=== PATIENT | male | born 1955 | race Caucasian/White ===

== ENCOUNTER 2021-10-30 01:07 | Day surgery (SDC) | payer MEDICARE, SELFPAY ==
[2021-10-18 13:23] VITALS: BMI 33.5
--- NOTE | 2021-10-30 06:59 | PM.HPGS ---
History of Present Illness History of Present Illness Consent: Risks, benefits, and alternatives have been discussed and questions answered. Patient agrees to proceed with procedure. Chief complaint: hx of colon polyps Narrative: Damien Marshall is a 66 year old male Here for colon cancer screening. He had a polyp removed a little over 3 years ago. There is a strong family history of colon cancer Review of Systems Review of Systems: All systems reviewed & are unremarkable except as noted in HPI and below PMFSH Past Medical History Medical History Diabetes type 2, controlled Hyperlipidemia Hypertension Social History Social History Smoking status: Never smoker Alcohol intake: never Substance use: never Substance use type: does not use Living arrangements: with family Spiritual care concerns: No Meds Home Medications and Allergies Home Medications Medication Instructions Recorded Confirmed Type carbidopa-levodopa 1 tablet PO TID 10/18/21 10/18/21 History glimepiride 2 mg PO BID 10/18/21 10/18/21 History hydrochlorothiazide 12.5 mg PO DAILY 10/18/21 10/18/21 History lisinopril 20 mg PO DAILY 10/18/21 10/18/21 History metformin 1,000 mg PO BID 10/18/21 10/18/21 History pravastatin 40 mg PO DAILY 10/18/21 10/18/21 History Allergies Allergy/AdvReac Type Severity Reaction Status Date / Time No Known Allergies Allergy Verified 10/30/21 09:31 Exam Resp: Auscultation: clear to auscultation bilaterally Cardio: Rate: regular rate Rhythm: regular rhythm GI: GI Palp: Yes Soft to palpation and No Tenderness to palpation present (GI) Assessment and Plan Assessment and plan (1) Colon cancer screening: Code(s): Z12.11 - Encounter for screening for malignant neoplasm of colon Status: Acute Assessment and Plan: Colonoscopy with possible biopsy or polypectomy or cautery or injection of substances.
--- NOTE | 2021-10-30 07:03 | P.PNAN_ITS ---
Anes - Initial Pre Proc Eval Procedure: Operation Date: 10/30/21 10:30 Proposed Procedures p Screening Colonoscopy - Tristian Good MD Date/Time: 10/30/21 07:03 Surgeon: Tristian Good MD Pre Op Diagnosis: hx of colon polyps Patient Data Age: 66 Gender: M Height: 1.93 m Weight: 125 kg Allergies Allergy/AdvReac Type Severity Reaction Status Date / Time No Known Allergies Allergy Verified 10/30/21 09:31 Home Medications Medication Instructions Recorded Confirmed Type carbidopa-levodopa 1 tablet PO TID 10/18/21 10/18/21 History glimepiride 2 mg PO BID 10/18/21 10/18/21 History hydrochlorothiazide 12.5 mg PO DAILY 10/18/21 10/18/21 History lisinopril 20 mg PO DAILY 10/18/21 10/18/21 History metformin 1,000 mg PO BID 10/18/21 10/18/21 History pravastatin 40 mg PO DAILY 10/18/21 10/18/21 History Patient hx anesthesia problems: none Family hx anesthesia problems: none Results Review: All pre-operative results and documents have been reviewed as part of the pre-operative evaluation. COUNT INCLUDES THE [facility] Past Medical History Medical History (Updated 10/30/21 @ 07:04 by Jefferson Hooper DO) Diabetes type 2, controlled Hyperlipidemia Hypertension Social History Social History Smoking status: Never smoker Alcohol intake: never Substance use: never Substance use type: does not use Living arrangements: with family Spiritual care concerns: No Anes - Eval Final PreProcedure Day of Procedure 10/30/21 07:03 Patient weight: obese Heart: regular rate and rhythm Lungs: clear to auscultation and normal air movement Airway: Mallampati scale class II Neurological: alert and oriented Last oral intake: >/= 8 hours ASA classification: III Emergent: no Anesthetic plan: proceed Anesthesia type and monitoring: general GIVS and standard monitoring Results Review: All pre-operative results and documents have been reviewed as part of the pre-operative evaluation. Informed Consent: The patient's anesthetic plan and its attendant risks and benefits were discussed with the patient/family/POA. Questions were solicited and answers provided to the satisfaction of the patient/family/POA.
[2021-10-30 09:32] VITALS: BP 143/76; PULSE 62; RESP 18; TEMP 36.2; O2SAT 97; BMI 36.0
[2021-10-30] MEDS: LACTATED RINGERS 1,000 ML 150 ML IV CONT (09:45)
[2021-10-30 09:48] LABS: Glucose Point of Care 145 mg/dl (65-105)
[2021-10-30 11:03] VITALS: BP 103/69; PULSE 54; RESP 12; O2SAT 95
[2021-10-30 11:13] VITALS: BP 99/66; PULSE 57; RESP 18; O2SAT 98
[2021-10-30 11:23] VITALS: BP 113/73; PULSE 52; RESP 17; O2SAT 98
== END 2021-10-30 11:26 | disposition home or self-care (01) ==
PROVIDERS: PCP Internal Medicine; Visit Provider Internal Medicine Gastroenterology
PROC: 0DJD8ZZ Inspection of Lower Intestinal Tract, Via Natural or Artificial Opening Endoscopic (ICD-10-PCS; CPT 45378; principal; 2021-10-30 10:30)
DX: Z12.11 Encounter for screening for malignant neoplasm of colon (principal); K57.30 Diverticulosis of large intestine without perforation or abscess without bleeding; Z86.010 Personal history of colon polyps; E11.9 Type 2 diabetes mellitus without complications; E78.5 Hyperlipidemia, unspecified; I10 Essential (primary) hypertension; Z79.84 Long term (current) use of oral hypoglycemic drugs; E66.9 Obesity, unspecified; Z68.36 Body mass index [BMI] 36.0-36.9, adult; Z80.0 Family history of malignant neoplasm of digestive organs
CPT/HCPCS: G0105; 82948; J2001; J2704; J7120

== ENCOUNTER 2024-11-02 13:07 | Outpatient (CLI) | payer MEDICARE, SELFPAY ==
--- NOTE | 2024-11-02 13:45 | NEURO_ITS ---
Impression: # Complains of numbness of right 2nd and 3rd fingers. Non-diabetic. ? # Mild right Carpal Tunnel Syndrome. ? # No ulnar neuropathy. ? # Normal needle/EMG exam. Nerve Conduction Studies Anti Sensory Summary Table ?Stim Site NR Peak (ms) P-T Amp (?V) Site1 Site2 Delta-P (ms) Dist (cm) Gorge (m/s) Right Median Anti Sensory (2-3nd Digit) Wrist ? 4.0 37.2 Wrist 2-3nd Digit 4.0 14.0 35 Wrist ? 4.0 31.7 Wrist 2-3nd Digit 4.0 14.0 35 Right Radial Anti Sensory (Base 1st Digit) Wrist ? 2.5 14.1 Wrist Base 1st Digit 2.5 0.0 Right Ulnar Anti Sensory (5th Digit) Wrist ? 3.4 19.4 Wrist 5th Digit 3.4 14.0 41 Motor Summary Table ?Stim Site NR Onset (ms) O-P Amp (mV) Site1 Site2 Delta-0 (ms) Dist (cm) Gorge (m/s) Right Median Motor (Abd Poll Brev) Wrist ? 4.5 3.2 Elbow Wrist 5.4 30.0 56 Elbow ? 9.9 2.9 Right Ulnar Motor (Abd Dig Minimi) Wrist ? 3.0 5.0 A Elbow Wrist 5.8 33.0 57 A Elbow ? 8.8 3.9 F Wave Studies ?NR F-Lat (ms) L-R F-Lat (ms) Right Median (Mrkrs) (Abd Poll Brev) ? 31.99 Right Ulnar (Mrkrs) (Abd Dig Min) ? 33.80 EMG ?Side Muscle Nerve Root Ins Act Fibs Amp Dur Recrt Comment Right 1stDorInt Ulnar C8-T1 Nml Nml Nml Nml Nml Right Ext Indicis Radial (Post Int) C7-8 Nml Nml Nml Nml Nml Right Ext Digitorum Radial (Post Int) C7-8 Nml Nml Nml Nml Nml Right BrachioRad Radial C5-6 Nml Nml Nml Nml Nml Right PronatorTeres Median C6-7 Nml Nml Nml Nml Nml Right Abd Poll Brev Median C8-T1 Nml Nml Nml Nml Nml Right ABD Dig Min Ulnar C8-T1 Nml Nml Nml Nml Nml MTDD
--- OUTSIDE RECORDS SUMMARY | 2024-11-04 00:55 | XMS_ITS | Clinical Summary ---
Author Organization [facility] [place] Address [address] [place] [address] Care Team Providers Care Genetics Teacher Name Role Phone Unavailable Primary Care Provider Unavailabl e Source Comments [facility] [place],non-owned Affiliates and Associated Physician Practices is amultiple site organization consisting of ambulatory clinics and hospital sitesin [place], [place], [place]. This disclosure is being madepursuant to the Care Everywhere program and may not contain all information available regarding this patient. Last updated 18.[employer] Allergies No known active allergies Medications * Be aware that medications may not be up to date on this document. Alwaysverify current medications with the patient. Medication Sig Dispensed Refills Start Date End Date Status aspirin 325 MG tablet Take 3 tablets by mouth once daily Active hydrochlorothiazide (MICROZIDE) 12.5 MG capsule Take 1 Cap by mouth once daily. Active carbidopa-levodopa (SINEMET) 10-100 MG tablet Take 1 tablet by mouth 3 times daily 1 tablet tid Active pravastatin (PRAVACHOL) 40 MG tablet Take 1 Tab by mouth once daily. Active metformin CR 24hr modified (GLUMETZA) 500 MG (MOD) tablet Take 500 mg by mouth daily with dinner. Active lisinopril (PRINIVIL; ZESTRIL) 20 MG tablet Take 20 mg by mouth once daily 1 01/18/2018 Active indomethacin (INDOCIN) 50 MG capsule Take 50 mg by mouth once daily Active glimepiride (AMARYL) 2 MG tablet Take 2 mg by mouth 2 times daily 1 11/08/2018 Active topiramate (TOPAMAX) 25 MG tablet Take 2 tablets by mouth at bedtime 60 tablet 11 12/06/2018 Active Active Problems Problem Noted Date Diagnosed Date Numbness and tingling 10/18/2014 Headache 10/18/2014 Overview (08/19/2015): Degeneration of cervical intervertebral disc 12/2012 Pain in limb 07/14/2013 Displacement of cervical int ervertebral disc without myelopathy 07/14/2013 Family History Medical History Relation Name Comments Cancer Father Cancer Mother Parkinson's Disease Mother Relation Name Status Comments Father Mother Social History Tobacco Use Types Packs/Day Years Used Date Smoking Tobacco: Never Smokeless Tobacco: Never Alcohol Use Standard Drinks/Week Comments No 0 (1 standard drink = 0.6 oz pur e alcohol) Sex and Gender Information Value Date Recorded Sex Assigned at Not on file Gender Identity Not on file Sexual Orientation Not on file Last Filed Vital Signs Vital Sign Reading Time Taken Comments Blood Pressure 128/74 12/06/2018 11:25 AM ACTIVITY THERAPY TEACHER Pulse 74 12/06/2018 11:25 AM ACTIVITY THERAPY TEACHER Temperature - - Respiratory Rate 18 12/06/2018 11:25 AM ACTIVITY THERAPY TEACHER Oxygen Saturation 96% 12/06/2018 11:25 AM ACTIVITY THERAPY TEACHER Inhaled Oxygen Concentration - - Weight 140.2 kg (309 lb) 12/06/2018 11:25 AM ACTIVITY THERAPY TEACHER Height 193 cm (6' 4 ) 12/06/2018 11:25 AM ACTIVITY THERAPY TEACHER Body Mass Index 37.61 12/06/2018 11:25 AM ACTIVITY THERAPY TEACHER Plan of Treatment Health Maintenance Due Date Last Done Comments COLOGUARD (AGES 45-75) - COL ON CA SCREENING 1954 COLON MONITORING 1954 COLONOSCOPY - COLON CA SCREENING 1954 CT COLONOGRAPHY - COLON CA SCREENING 1954 Colorectal Cancer Screening 1954 FIT - COLON CA SCREENING 1954 FLEX SIG - COLON CA SCREENING 1954 HEPATITIS C SCREENING 05/06/1972 DTAP/TDAP/TD VACCINES (1 - Tdap) 1973 PNEUMOCOCCAL VACCINE 50+ (1 of 1 - PCV) 2004 ZOSTER VACCINE (1 of 2) 2004 SCREENING FOR DIABETES 02/25/2018 COVID-19 VACCINE (2023-2 5 season) 2024 INFLUENZA VACCINE (#1) 2024 DEPRESSION SCREENING 10/12/2024 Respiratory Syncytial Virus (RSV) Vaccine Pt: or over 60 yrs (1 - 1-dose 75+ series) 2029 HEPATITIS B VACCINE Aged Out No longe r eligible based on patient's age to complete this topic HIB VACCINE Aged Out No longer eligi ble based on patient's age to complete this topic HPV VACCINE Aged Out No longer eligi ble based on patient's age to complete this topic MENINGOCOCCAL (Group B) VACCINE Aged Out No longer eligible based on patient's age to complete this topic MENINGOCOCCAL VACCINE Aged Out No costa josiah eligible based on patient's age to complete this topic
--- OUTSIDE RECORDS SUMMARY | 2024-11-04 00:55 | XMS_ITS | Data Portability ---
Author Organization [facility], Main Office Address [address] [place] [address] Assessment No assessment recorded. Plan of Treatment Reminders Order Date Submit Date Provider Last Modified By Organization Details Last Modified Time Details Appointments None recorded. Lab HbA1c (hemoglobin A1c), blood [id number] [place] [address] Outpatient Lab, [address] [place], [address], 4 15:52:05 microalbumi n/creatinin e, mass ratio, urine [id number] [place] [address] Outpatient Lab, [address] [place], [address], 4 15:52:05 lipid panel, serum [id number] [place] [address] Outpatient Lab, [address] [place], [address], 4 15:52:04 CMP, serum or plasma [id number] [place] [address] Outpatient Lab, [address] [place], [address], 4 15:52:05 TSH, serum or plasma [id number] [place] [address] Outpatient Lab, [address] [place], [address], 4 15:52:05 T4, free, serum [id number] [place] [address] Outpatient Lab, [address] [place], [address], 4 15:52:05 CBC w/ auto diff [id number] [place] [address] Outpatient Lab, [address] [place], [address], 4 15:52:04 HbA1c (hemoglobin A1c), blood [id number] [place] [address] Outpatient Lab, [address] [place], [address], 4 14:18:19 microalbumi n, urine [id number] [place] [address] Outpatient Lab, [address] [place], [address], 4 14:18:19 lipid panel, serum [id number] [place] [address] Outpatient Lab, [address] [place], [address], 4 14:18:19 CMP, serum or plasma [id number] [place] [address] Outpatient Lab, [address] [place], [address], 4 14:18:19 TSH, serum or plasma [id number] [place] [address] Outpatient Lab, [address] [place], [address], 4 14:18:19 T4, free, serum [id number] [place] [address] Outpatient Lab, [address] [place], [address], 4 14:18:19 PSA, serum or plasma [id number] [place] [address] Outpatient Lab, [address] [place], [address], 14:18:20 CBC w/ auto diff [id number] [place] [address] Outpatient Lab, [address] [place], [address], 4 14:18:18 HbA1c (hemoglobin A1c), blood 2023 [facility] [place] Outpatient Lab, [address] [place], [address], 4 10:51:56 microalbumi n, urine 2023 [facility] Lab, [address] [place], [address], 18:30:07 PSA, serum or plasma [id number] [place] [address] Outpatient Lab, [address] [place], [address], 4 10:51:56 CBC w/ auto diff 2023 [facility] Outpatient Lab, [address] [place], [address], 18:18:48 CMP, serum or plasma 2023 [facility] Outpatient Lab, [address] [place], [address], 4 18:49:26 lipid panel, serum 2023 [facility] Outpatient Lab, [address] [place], [address], 4 18:49:31 TSH, serum or plasma 2023 [facility] Outpatient Lab, [address] [place], [address], 19:40:29 T4, free, serum 2023 [facility] ([facility] - Outpatient Lab, [address] [place], [address], 19:13:06 Referral None recorded. Procedures None recorded. Surgeries None recorded. Imaging None recorded. Medication Orders cephalexin 500 mg capsule 2023 024 [email or web address] [facility][id number], [address] [place], [address], 16:54:45 Patient TargetsNo targets recorded. Patient Instructions Encounter Date Encounter Id Patient Instructions Last Modified By Organization Details Last Modified Time 09/08/2023 [id number] Abdominal pain etiology with somewhat obscure. Can be possible diverticulitis or even some diverticulosis with recent exacerbation of symptomatology. Will get CBC, CMP and CT of the abdomen with contrast. If negative may need to consider possible repeat colonoscopy if symptoms persist. Already has a follow-up appointment. Portions of the record may have been created with voice recognition software. Occasional wrong-word or ? kpuvd-p-laad? substitutions may have occurred due to the inherent limitations of voice recognition software. Read the chart carefully and recognize, using context, where substitutions have occurred. Keep Appt: Thu 11:00 AM Marga [email or web address] Not available 09/08/2023 14:26:06 11/13/2023 [id number] Follow-up hypertension-hyperl ipidemia - type 2 diabetes -obesity class one all clinically stable. Will check blood work consisting of CBC, CMP, lipid, thyroid, hemoglobin A1c and microalbumin. Continue on current Rx follow-up in six months. FDA recommendations of a influenza, RSV, COVID, pneumococcal immunizations strongly advised. Portions of the record may have been created with voice recognition software. Occasional wrong-word or ? izhqs-b-qevh? substitutions may have occurred due to the inherent limitations of voice recognition software. Read the chart carefully and recognize, using context, where substitutions have occurred. Next Appt: 6 Months Approximate Date: 2024 [email or web address] Not available 11/13/2023 12:38:50 05/12/2024 [id number] Follow-up essent ial hypertension, hyperlipidemia, type 2 diabetes. The patient has done well with weight loss has lost over 20 lb with modification and diet and increasing exercise routine. Clinically is doing well with the exception of occasional some numbness and tingling in the right foot which he notices predominantly at nighttime while lying in bed. When upright and ambulating no symptoms whatsoever. Is clinically doing well otherwise. Had a recent episode of exposure to scabies. Had no rash associated with this still has some residual itching which may be related to diabetes or could be related some form of atypical dermatitis. Clinically is doing well otherwise. Will check blood work consisting of a CBC, CMP, lipid, thyroid,HAIC and PSA. Follow-up in six months Additional Orders and/or Directives: 1. at the blood work after May 28 because of insurance reasons. Next Appointment: 6 Months Approximate Date: 11/08/2024 Portions of the record may have been created with voice recognition software. Occasional wrong-word or ? vjbab-a-buec? substitutions may have occurred due to the inherent limitations of voice recognition software. Read the chart carefully and recognize, using context, where substitutions have occurred. [email or web address] Not available 05/12/2024 12:29:19 08/04/2024 [id number] Follow-up for essential hypertension, hyperlipidemia, type 2 diabetes. Will set up with Dermatology as well as a for nerve conduction study done of the arm. Check blood work consisting of CBC, CMP, lipid, thyroid, hemoglobin A1c and PSA. Follow-up in six months Additional Orders - Directives - Recommendations 1. nerve conduction study of the right arm for possible cubital or carpal tunnel syndrome 2. dermatology consult for general skin screen for skin lesions as well as pruritus Keep Appointment: [facility] 11 10 2024 11:00 AM Bernardino Portions of the record may have been created with voice recognition software. Occasional wrong-word or ? nponq-m-axux? substitutions may have occurred due to the inherent limitations of voice recognition software. Read the chart carefully and recognize, using context, where substitutions have occurred. [email or web address] Not available 08/04/2024 12:47:26 09/22/2024 [id number] Early cellulitis of left great toe. Will cover with some cephalexin 500 mg t.i.d. For seven days. Instructed to let us take a look at the toe in the next 4872 hours gave him my telephone number to send a picture. Otherwise is clinically stable. Keep Appointment: [facility] 11 10 2024 11:00 AM Marga Portions of the record may have been created with voice recognition software. Occasional wrong-word or ? kabyt-j-lufh? substitutions may have occurred due to the inherent limitations of voice recognition software. Read the chart carefully and recognize, using context, where substitutions have occurred. Created: Kota Rodriguez M.D. 09.22.2024 03:54 PM [email or web address] Not available 09/22/2024 16:54:53 Reason for Referral None Reported. Results Created Date Observation Date Name Description Value Unit Range Abnormal Flag Note LastModifiedBy Organization Detail LastModifiedTime 09/08/2009/08/2023 COMPR EHENS CORI METAB OLIC PANEL sodium 140 mmol/ L 137-14 5 Not Available [facility] (Lab) [address] [place], [address], 09/08/2023 18:23:46 09/08/20 23 09/08/2023 COMPR EHENS CORI METAB OLIC PANEL potassium 4.5 mmol/ L 3.5-5. 1 Not Available [facility] (Lab) [address] [place], [address], 09/08/2023 18:23:46 09/08/20 23 09/08/2023 COMPR EHENS CORI METAB OLIC PANEL chloride 105 mmol/ L 98-107 Not Available [facility] (Lab) [address] [place], [address], 09/08/2023 18:23:46 09/08/20 23 09/08/2023 COMPR EHENS CORI METAB OLIC PANEL carbon dioxide 26 mmol/ L 22-30 Not Available [facility] (Lab) [address] [place], [address], 09/08/2023 18:23:46 09/08/20 23 09/08/2023 COMPR EHENS CORI METAB OLIC PANEL anion gap 13.5 mmol/ L 14-22 low Not Available [facility] (Lab) [address] [place], [address], 09/08/2023 18:23:46 09/08/2009/08/2023 COMPR EHENS CORI METAB OLIC PANEL glucose 120 mg/dL 70-99 high Not Available [facility] (Lab) [address] [place], [address], 09/08/2023 18:23:46 09/08/20 23 09/08/2023 COMPR EHENS CORI METAB OLIC PANEL BUN 20 mg/dL 8-19 high Not Available [facility] (Lab) [address] [place], [address], 09/08/2023 18:23:46 09/08/20 23 09/08/2023 COMPR EHENS CORI METAB OLIC PANEL creatinine 0.98 mg/dL 0.66-1 .25 Not Available [facility] (Lab) [address] [place], [address], 09/08/2023 18:23:46 09/08/20 23 09/08/2023 COMPR EHENS CORI METAB OLIC PANEL GFR >60 Refer ence Range : [place] ge GFR Healt hy Adult : >60 mL/mi n/1.7 3 m2 Chron ic Kidne y Disea se: 15-60 mL/mi n/1.7 3 m2 Kidne y Failu re: <15/m L/min /1.73 m2 www.n iddk. nih.g ov The MDRD study equat ion has not been valid ated in child alcon <18 years of age; pregn ant women ; the elder ly >85 years of age; or in some racia l or ethni c subgr oups, such as Hispa nics. Outsi de the valid ated oniel eters , estim ated GFR is less accur ate, requi ring clini peter judgm ent on a case- by-ca se basis . Clini peter inter preta tion for other races and ages must be made by the clini keke. The MDRD study equat ion has not been valid ated for the evalu ation of serum creat inine relat ed to nutri cuate l statu s or medic ation usage . For perso ns <18 years of age, a pedia tric GFR calcu lator is avail able on the [facility] websi te: https ://tracie encarnacion.jean butty.o rg/pr ofess ional s/kdo qi/gf r_cal culat or Not Available [facility] (Lab) [address] [place], [address], 09/08/2023 18:23:46 09/08/20 23 09/08/2023 COMPR EHENS CORI METAB OLIC PANEL alkaline phosphatase 47 U/L 38-126 Not Available [facility] (Lab) [address] [place], [address], 09/08/2023 18:23:46 09/08/20 23 09/08/2023 COMPR EHENS CORI METAB OLIC PANEL alanine aminotransfe rase 10 U/L 0-50 Not Available [facility] (Lab) [address] [place], [address], 09/08/2023 18:23:46 09/08/20 23 09/08/2023 COMPR EHENS CORI METAB OLIC PANEL aspartate aminotransfe rase 24 U/L 15-46 Not Available [facility] (Lab) [address] [place], [address], 09/08/2023 18:23:46 09/08/20 23 09/08/2023 COMPR EHENS CORI METAB OLIC PANEL bilirubin, total 0.50 mg/dL 0.20-1 .30 Not Available [facility] (Lab) [address] [place], [address], 09/08/2023 18:23:46 09/08/20 23 09/08/2023 COMPR EHENS CORI METAB OLIC PANEL calcium 9.2 mg/dL 8.4-10 .2 Not Available [facility] (Lab) [address] [place], [address], 09/08/2023 18:23:46 09/08/20 23 09/08/2023 COMPR EHENS CORI METAB OLIC PANEL total protein 6.8 g/dL 6.3-8. 2 Not Available [facility] (Lab) [address] [place], [address], 09/08/2023 18:23:46 09/08/20 23 09/08/2023 COMPR EHENS CORI METAB OLIC PANEL albumin 3.8 g/dL 3.0-4. 4 Not Available [facility] (Lab) [address] [place], [address], 09/08/2023 18:23:46 09/08/20 23 09/08/2023 COMPR EHENS CORI METAB OLIC PANEL globulin 3.0 g/dL 2.6-4. 2 Not Available [facility] (Lab) [address] [place], [address], 09/08/2023 18:23:46 09/08/20 23 09/08/2023 COMPR EHENS CORI METAB OLIC PANEL A/G ratio 1.3 ratio 1.0-2. 0 Not Available [facility] (Lab) [address] [place], [address], 09/08/2023 18:23:46 09/08/20 23 09/08/2023 CBC/C OMPLE TE BLD COUNT W/DIF F white blood cells 9.3 x10'3 /uL 4.2-10 .8 Not Available [facility] (Lab) [address] [place], [address], 09/08/2023 18:36:40 09/08/20 23 09/08/2023 CBC/C OMPLE TE BLD COUNT W/DIF F red blood cells 4.64 x10'6 /uL 4.10-5 .80 Not Available [facility] (Lab) [address] [place], [address], 09/08/2023 18:36:40 09/08/2009/08/2023 CBC/C OMPLE TE BLD COUNT W/DIF F hemoglobin 14.4 g/dL 13.2-1 7.0 Not Available [facility] (Lab) [address] [place], [address], 09/08/2023 18:36:40 09/08/20 23 09/08/2023 CBC/C OMPLE TE BLD COUNT W/DIF F hematocrit 43.0 % 39.3-5 0.0 Not Available [facility] (Lab) [address] [place], [address], 09/08/2023 18:36:40 09/08/20 23 09/08/2023 CBC/C OMPLE TE BLD COUNT W/DIF F mean red cell volume 92.7 fL 80.0-9 7.0 Not Available [facility] (Lab) [address] [place], [address], 09/08/2023 18:36:40 09/08/20 23 09/08/2023 CBC/C OMPLE TE BLD COUNT W/DIF F mean red cell hemoglobin 31.0 pg 27.0-3 3.0 Not Available [facility] (Lab) [address] [place], [address], 09/08/2023 18:36:40 09/08/20 23 09/08/2023 CBC/C OMPLE TE BLD COUNT W/DIF F mean RBC HGB concentratio n 33.5 g/dL 31.0-3 6.0 Not Available [facility] (Lab) [address] [place], [address], 09/08/2023 18:36:40 09/08/20 23 09/08/2023 CBC/C OMPLE TE BLD COUNT W/DIF F red cell distribution width 12.2 % 11.8-1 5.5 Not Available [facility] (Lab) [address] [place], [address], 09/08/2023 18:36:40 09/08/20 23 09/08/2023 CBC/C OMPLE TE BLD COUNT W/DIF F platelets 264 x10'3 /uL 150-40 0 Not Available [facility] (Lab) [address] [place], [address], 09/08/2023 18:36:40 09/08/20 23 09/08/2023 CBC/C OMPLE TE BLD COUNT W/DIF F mean platelet volume 9.9 fL 9.0-12 .4 Not Available [facility] (Lab) [address] [place], [address], 09/08/2023 18:36:40 09/08/2009/08/2023 CBC/C OMPLE TE BLD COUNT W/DIF F neutrophils 64.7 % 39.0-7 2.0 Not Available [facility] (Lab) [address] [place], [address], 09/08/2023 18:36:40 09/08/20 23 09/08/2023 CBC/C OMPLE TE BLD COUNT W/DIF F lymphocytes 24.1 % 16.0-4 7.0 Not Available [facility] (Lab) [address] [place], [address], 09/08/2023 18:36:40 09/08/20 23 09/08/2023 CBC/C OMPLE TE BLD COUNT W/DIF F monocytes 9.4 % 5.0-12 .0 Not Available [facility] (Lab) [address] [place], [address], 09/08/2023 18:36:40 09/08/20 23 09/08/2023 CBC/C OMPLE TE BLD COUNT W/DIF F eosinophils 1.3 % 1.0-7. 0 Not Available [facility] (Lab) [address] [place], [address], 09/08/2023 18:36:40 09/08/2009/08/2023 CBC/C OMPLE TE BLD COUNT W/DIF F basophils 0.3 % 0.0-2. 0 Not Available [facility] (Lab) [address] [place], [address], 09/08/2023 18:36:40 09/08/20 23 09/08/2023 CBC/C OMPLE TE BLD COUNT W/DIF F immature granulocytes 0.2 % 0.00-0 .50 Not Available [facility] (Lab) [address] [place], [address], 09/08/2023 18:36:40 09/08/2009/08/2023 CBC/C OMPLE TE BLD COUNT W/DIF F neutrophils, absolute count 5.98 x10'3 /uL 1.5-8. 0 Not Available [facility] (Lab) [address] [place], [address], 09/08/2023 18:36:40 09/08/20 23 09/08/2023 CBC/C OMPLE TE BLD COUNT W/DIF F lymphocytes, absolute count 2.23 x10'3 /uL 1.07-3 .43 Not Available [facility] (Lab) [address] [place], [address], 09/08/2023 18:36:40 09/08/20 23 09/08/2023 CBC/C OMPLE TE BLD COUNT W/DIF F monocytes, absolute count 0.87 x10'3 /uL 0.29-0 .99 Not Available [facility] (Lab) [address] [place], [address], 09/08/2023 18:36:40 09/08/20 23 09/08/2023 CBC/C OMPLE TE BLD COUNT W/DIF F eosinophils, absolute count 0.12 x10'3 /uL 0.02-0 .53 Not Available [facility] (Lab) [address] [place], [address], 09/08/2023 18:36:40 09/08/20 23 09/08/2023 CBC/C OMPLE TE BLD COUNT W/DIF F basophils, absolute count 0.03 x10'3 /uL 0.01-0 .08 Not Available [facility] (Lab) [address] [place], [address], 09/08/2023 18:36:40 09/08/20 23 09/08/2023 CBC/C OMPLE TE BLD COUNT W/DIF F immature granulocytes ,absolute 0.02 x10'3 /uL 0.00-0 .05 Not Available [facility] (Lab) [address] [place], [address], 09/08/2023 18:36:40 09/08/20 23 09/08/2023 CBC/C OMPLE TE BLD COUNT W/DIF F nucleated red blood cells 0.0 % -0 Not Available [facility] (Lab) [address] [place], [address], 09/08/2023 18:36:40 09/08/20 23 09/08/2023 CBC/C OMPLE TE BLD COUNT W/DIF F NRBC# 0.00 x10'3 /uL Not Available [facility] (Lab) [address] [place], [address], 09/08/2023 18:36:40 09/10/20 23 09/10/2023 URINA LYSIS COMPL ETE/I RIS W/RFX color YELLOW Not Available [facility] (Lab) [address] [place], [address], 09/10/2023 20:10:52 09/10/20 23 09/10/2023 URINA LYSIS COMPL ETE/I RIS W/RFX appear EXTRA TURBID abnormal Not Available [facility] (Lab) [address] [place], [address], 09/10/2023 20:10:52 09/10/20 23 09/10/2023 URINA LYSIS COMPL ETE/I RIS W/RFX specific gravity 1.024 1.001- 1.030 Not Available [facility] (Lab) [address] [place], [address], 09/10/2023 20:10:52 09/10/20 23 09/10/2023 URINA LYSIS COMPL ETE/I RIS W/RFX pH 5.5 pH_un its 5.0-9. 0 Not Available [facility] (Lab) [address] [place], [address], 09/10/2023 20:10:52 09/10/20 23 09/10/2023 URINA LYSIS COMPL ETE/I RIS W/RFX leukocytes NEGATI VE hannah/u L negati ve- Not Available [facility] (Lab) [address] [place], [address], 09/10/2023 20:10:52 09/10/20 23 09/10/2023 URINA LYSIS COMPL ETE/I RIS W/RFX nitrite NEGATI VE negati ve- Not Available [facility] (Lab) [address] [place], [address], 09/10/2023 20:10:52 09/10/20 23 09/10/2023 URINA LYSIS COMPL ETE/I RIS W/RFX protein 20 mg/dL negati ve- abnormal Not Available [facility] (Lab) [address] [place], [address], 09/10/2023 20:10:52 09/10/20 23 09/10/2023 URINA LYSIS COMPL ETE/I RIS W/RFX glucose NORMAL mg/dL normal - Not Available [facility] (Lab) [address] [place], [address], 09/10/2023 20:10:52 09/10/20 23 09/10/2023 URINA LYSIS COMPL ETE/I RIS W/RFX ketones NEGATI VE mg/dL negati ve- Not Available [facility] (Lab) [address] [place], [address], 09/10/2023 20:10:52 09/10/20 23 09/10/2023 URINA LYSIS COMPL ETE/I RIS W/RFX urobilinogen NORMAL mg/dL normal - Not Available [facility] (Lab) [address] [place], [address], 09/10/2023 20:10:52 09/10/20 23 09/10/2023 URINA LYSIS COMPL ETE/I RIS W/RFX bilirubin NEGATI VE mg/dL negati ve- Not Available [facility] (Lab) [address] [place], [address], 09/10/2023 20:10:52 09/10/20 23 09/10/2023 URINA LYSIS COMPL ETE/I RIS W/RFX blood NEGATI VE mg/dL negati ve- Not Available [facility] (Lab) [address] [place], [address], 09/10/2023 20:10:52 09/10/20 23 09/10/2023 URINA LYSIS COMPL ETE/I RIS W/RFX white blood cells 0-8 /i??h pfi?? 0-8 Not Available [facility] (Lab) [address] [place], [address], 09/10/2023 20:10:52 09/10/20 23 09/10/2023 URINA LYSIS COMPL ETE/I RIS W/RFX red blood cells NONE /i??h pfi?? 0-4 Not Available [facility] (Lab) [address] [place], [address], 09/10/2023 20:10:52 09/10/20 23 09/10/2023 URINA LYSIS COMPL ETE/I RIS W/RFX bacteria NONE Not Available [facility] (Lab) [address] [place], [address], 09/10/2023 20:10:52 09/10/20 23 09/10/2023 URINA LYSIS COMPL ETE/I RIS W/RFX mucous OCCASI ONAL /i??l pfi?? abnormal Not Available [facility] (Lab) [address] [place], [address], 09/10/2023 20:10:52 09/10/20 23 09/10/2023 URINA LYSIS COMPL ETE/I RIS W/RFX squamous epithelial NONE /i??l pfi?? Not Available [facility] (Lab) [address] [place], [address], 09/10/2023 20:10:52 09/10/20 23 09/10/2023 URINA LYSIS COMPL ETE/I RIS W/RFX amorphous crystal MANY /i??h pfi?? abnormal Not Available [facility] (Lab) [address] [place], [address], 09/10/2023 20:10:52 12/04/19 24 12/04/2023 MICRO ALBUM N RNDM W/CRE AT RATIO ur creat 67.30 mg/dL REFER ENCE RANGE NOT ESTAB ROSIE D FOR STEFANO M URINE CREAT ININE Not Available [facility] (Lab) [address] [place], [address], 12/04/2023 18:49:17 12/04/19 24 12/04/2023 MICRO ALBUM N RNDM W/CRE AT RATIO microalbumin , urine 33.5 mg/L 0.0-16 .6 high Not Available [facility] (Lab) [address] [place], [address], 12/04/2023 18:49:17 12/04/19 24 12/04/2023 MICRO ALBUM N RNDM W/CRE AT RATIO microalbumin /creatinine ratio 50 mcg/m g 0-29 high THE [facility]I CAN DIABE [facility] ASS[facility] IATIO N DEFIN ES ABNOR MALIT IES IN ALBUM IN EXCRE TION FOLLO WS: CATEG ORY RESUL T (MCG/ MG CREAT ININE ) MILANA L <30 MICRO ALBUM INURI A 30-29 9 CLINI PETER ALBUM INURI A > OR = 300 THE ADA RECOM MENDS THAT 2 OF 2 SPECI MENS COLLE CTED WITHI N A 3- TO 6-MON TH PERIO D BE ABNOR MAL BEFOR E CONSI CONNER G A PATIE NT TO HAVE CROSS ED ONE OF THESE DIAGN OSTIC THRES HOLDS . REFER ENCE: DIABE [facility], VOL. 26: [id number] 96, 2002 Not Available [facility] (Lab) [address] [place], [address], 12/04/2023 18:49:17 12/04/19 24 12/04/2023 CBC/C OMPLE TE BLD COUNT W/DIF F white blood cells 9.8 x10'3 /uL 4.2-10 .8 Not Available [facility] (Lab) [address] [place], [address], 12/04/2023 18:48:52 12/04/19 24 12/04/2023 CBC/C OMPLE TE BLD COUNT W/DIF F red blood cells 4.88 x10'6 /uL 4.10-5 .80 Not Available [facility] (Lab) [address] [place], [address], 12/04/2023 18:48:52 12/04/19 24 12/04/2023 CBC/C OMPLE TE BLD COUNT W/DIF F hemoglobin 15.1 g/dL 13.2-1 7.0 Not Available [facility] (Lab) [address] [place], [address], 12/04/2023 18:48:52 12/04/19 24 12/04/2023 CBC/C OMPLE TE BLD COUNT W/DIF F hematocrit 45.2 % 39.3-5 0.0 Not Available [facility] (Lab) [address] [place], [address], 12/04/2023 18:48:52 12/04/19 24 12/04/2023 CBC/C OMPLE TE BLD COUNT W/DIF F mean red cell volume 92.6 fL 80.0-9 7.0 Not Available [facility] (Lab) [address] [place], [address], 12/04/2023 18:48:52 12/04/19 24 12/04/2023 CBC/C OMPLE TE BLD COUNT W/DIF F mean red cell hemoglobin 30.9 pg 27.0-3 3.0 Not Available [facility] (Lab) [address] [place], [address], 12/04/2023 18:48:52 12/04/19 24 12/04/2023 CBC/C OMPLE TE BLD COUNT W/DIF F mean RBC HGB concentratio n 33.4 g/dL 31.0-3 6.0 Not Available [facility] (Lab) [address] [place], [address], 12/04/2023 18:48:52 12/04/19 24 12/04/2023 CBC/C OMPLE TE BLD COUNT W/DIF F red cell distribution width 12.1 % 11.8-1 5.5 Not Available [facility] (Lab) [address] [place], [address], 12/04/2023 18:48:52 12/04/19 24 12/04/2023 CBC/C OMPLE TE BLD COUNT W/DIF F platelets 231 x10'3 /uL 150-40 0 Not Available [facility] (Lab) [address] [place], [address], 12/04/2023 18:48:52 12/04/19 24 12/04/2023 CBC/C OMPLE TE BLD COUNT W/DIF F mean platelet volume 9.7 fL 9.0-12 .4 Not Available [facility] (Lab) [address] [place], [address], 12/04/2023 18:48:52 12/04/19 24 12/04/2023 CBC/C OMPLE TE BLD COUNT W/DIF F neutrophils 64.3 % 39.0-7 2.0 Not Available [facility] (Lab) [address] [place], [address], 12/04/2023 18:48:52 12/04/19 24 12/04/2023 CBC/C OMPLE TE BLD COUNT W/DIF F lymphocytes 24.5 % 16.0-4 7.0 Not Available [facility] (Lab) [address] [place], [address], 12/04/2023 18:48:52 12/04/19 24 12/04/2023 CBC/C OMPLE TE BLD COUNT W/DIF F monocytes 8.7 % 5.0-12 .0 Not Available [facility] (Lab) [address] [place], [address], 12/04/2023 18:48:52 12/04/19 24 12/04/2023 CBC/C OMPLE TE BLD COUNT W/DIF F eosinophils 1.8 % 1.0-7. 0 Not Available [facility] (Lab) [address], [place], [address], 12/04/2023 18:48:52 12/04/19 24 12/04/2023 CBC/C OMPLE TE BLD COUNT W/DIF F basophils 0.5 % 0.0-2. 0 Not Available [facility] (Lab) [address] [place], [address], 12/04/2023 18:48:52 12/04/19 24 12/04/2023 CBC/C OMPLE TE BLD COUNT W/DIF F immature granulocytes 0.2 % 0.00-0 .50 Not Available [facility] (Lab) [address] [place], [address], 12/04/2023 18:48:52 12/04/19 24 12/04/2023 CBC/C OMPLE TE BLD COUNT W/DIF F neutrophils, absolute count 6.27 x10'3 /uL 1.5-8. 0 Not Available [facility] (Lab) [address] [place], [address], 12/04/2023 18:48:52 12/04/19 24 12/04/2023 CBC/C OMPLE TE BLD COUNT W/DIF F lymphocytes, absolute count 2.39 x10'3 /uL 1.07-3 .43 Not Available [facility] (Lab) [address] [place], [address], 12/04/2023 18:48:52 12/04/19 24 12/04/2023 CBC/C OMPLE TE BLD COUNT W/DIF F monocytes, absolute count 0.85 x10'3 /uL 0.29-0 .99 Not Available [facility] (Lab) [address] [place], [address], 12/04/2023 18:48:52 12/04/19 24 12/04/2023 CBC/C OMPLE TE BLD COUNT W/DIF F eosinophils, absolute count 0.18 x10'3 /uL 0.02-0 .53 Not Available [facility] (Lab) [address] [place], [address], 12/04/2023 18:48:52 12/04/19 24 12/04/2023 CBC/C OMPLE TE BLD COUNT W/DIF F basophils, absolute count 0.05 x10'3 /uL 0.01-0 .08 Not Available [facility] (Lab) [address] [place], [address], 12/04/2023 18:48:52 12/04/19 24 12/04/2023 CBC/C OMPLE TE BLD COUNT W/DIF F immature granulocytes ,absolute 0.02 x10'3 /uL 0.00-0 .05 Not Available [facility] (Lab) [address] [place], [address], 12/04/2023 18:48:52 12/04/19 24 12/04/2023 CBC/C OMPLE TE BLD COUNT W/DIF F nucleated red blood cells 0.0 % -0 Not Available [facility] (Lab) [address] [place], [address], 12/04/2023 18:48:52 12/04/19 24 12/04/2023 CBC/C OMPLE TE BLD COUNT W/DIF F NRBC# 0.00 x10'3 /uL Not Available [facility] (Lab) [address] [place], [address], 12/04/2023 18:48:52 12/04/19 24 12/04/2023 LIPID PANEL cholesterol 115 mg/dL 140-19 9 low NIH TRICIA NSUS RECOM MENDA TION FOR JORGE STERO L: ADULT CHILD LOW RISK: <200 <170 BORDE RLINE : <200- 239 ----- HIGH RISK: >240 >200 Not Available [facility] (Lab) [address] [place], [address], 12/04/2023 18:49:53 12/04/19 24 12/04/2023 LIPID PANEL triglyceride s 94 mg/dL 0-150 NIH TRICIA NSUS REPOR T RECOM MENDA TION FOR TRIGL YCERI MARVEL: ADULT CHILD LOW RISK: <150 ----- BODER LINE: 150-1 99 ----- HIGH RISK: >200 ----- Not Available [facility] (Lab) [address] [place], [address], 12/04/2023 18:49:53 12/04/19 24 12/04/2023 LIPID PANEL HDL cholesterol 33 mg/dL 40- low Not Available [facility] (Lab) [address] [place], [address], 12/04/2023 18:49:53 12/04/19 24 12/04/2023 LIPID PANEL LDL cholesterol, calculated 63 mg/dL 0-130 NIH TRICIA NSUS REPOR T RECOM MENDA TIONS FOR LDL: ADULT CHILD LOW RISK <130 <110 (OPTI MAL LDL) <100 ----- BORDE RLINE : 130-1 59 ----- HIGH RISK: >160 >130 A TRIGL YCERI DE RESUL T >400 INVAL IDATE S THE CALCU LATIO N FOR LDL FRACT IONAT ION - THE LDL RESUL T WILL NOT BE REPOR WERO. Not Available [facility] (Lab) [address] [place], [address], 12/04/2023 18:49:53 12/04/19 24 12/04/2023 COMPR EHENS CORI METAB OLIC PANEL sodium 142 mmol/ L 137-14 5 Not Available [facility] (Lab) [address] [place], [address], 12/04/2023 18:50:01 12/04/19 24 12/04/2023 COMPR EHENS CORI METAB OLIC PANEL potassium 4.2 mmol/ L 3.5-5. 1 Not Available [facility] (Lab) [address] [place], [address], 12/04/2023 18:50:01 12/04/19 24 12/04/2023 COMPR EHENS CORI METAB OLIC PANEL chloride 106 mmol/ L 98-107 Not Available [facility] (Lab) [address] [place], [address], 12/04/2023 18:50:01 12/04/19 24 12/04/2023 COMPR EHENS CORI METAB OLIC PANEL carbon dioxide 25 mmol/ L 22-30 Not Available [facility] (Lab) [address] [place], [address], 12/04/2023 18:50:01 12/04/19 24 12/04/2023 COMPR EHENS CORI METAB OLIC PANEL anion gap 15.2 mmol/ L 14-22 Not Available [facility] (Lab) [address] [place], [address], 12/04/2023 18:50:01 12/04/19 24 12/04/2023 COMPR EHENS CORI METAB OLIC PANEL glucose 114 mg/dL 70-99 high Not Available [facility] (Lab) [address] [place], [address], 12/04/2023 18:50:01 12/04/19 24 12/04/2023 COMPR EHENS CORI METAB OLIC PANEL BUN 19 mg/dL 8-19 Not Available [facility] (Lab) [address] [place], [address], 12/04/2023 18:50:01 12/04/19 24 12/04/2023 COMPR EHENS CORI METAB OLIC PANEL creatinine 0.92 mg/dL 0.66-1 .25 Not Available [facility] (Lab) [address] [place], [address], 12/04/2023 18:50:01 12/04/19 24 12/04/2023 COMPR EHENS CORI METAB OLIC PANEL GFR >60 Refer ence Range : Dalton ge GFR Healt hy Adult : >60 mL/mi n/1.7 3 m2 Chron ic Kidne y Disea se: 15-60 mL/mi n/1.7 3 m2 Kidne y Failu re: <15/m L/min /1.73 m2 www.n iddk. nih.g ov The MDRD study equat ion has not been valid ated in child alcon <18 years of age; pregn ant women ; the elder ly >85 years of age; or in some racia l or ethni c subgr oups, such as Hispa nics. Outsi de the valid ated oniel eters , estim ated GFR is less accur ate, requi ring clini peter judgm ent on a case- by-ca se basis . Clini peter inter preta tion for other races and ages must be made by the clini keke. The MDRD study equat ion has not been valid ated for the evalu ation of serum creat inine relat ed to nutri cuate l statu s or medic ation usage . For perso ns <18 years of age, a pedia tric GFR calcu lator is avail able on the [facility] websi te: https ://tracie rosas.kyle crandall/pr ofess ional s/kdo qi/gf r_cal culat or Not Available [facility] (Lab) [address] [place], [address], 12/04/2023 18:50:01 12/04/19 24 12/04/2023 COMPR EHENS CORI METAB OLIC PANEL alkaline phosphatase 69 U/L 38-126 Not Available [facility] (Lab) [address] [place], [address], 12/04/2023 18:50:01 12/04/19 24 12/04/2023 COMPR EHENS CORI METAB OLIC PANEL alanine aminotransfe rase 9 U/L 0-50 Not Available [facility] (Lab) [address] [place], [address], 12/04/2023 18:50:01 12/04/19 24 12/04/2023 COMPR EHENS CORI METAB OLIC PANEL aspartate aminotransfe rase 24 U/L 15-46 Not Available [facility] (Lab) [address] [place], [address], 12/04/2023 18:50:01 12/04/19 24 12/04/2023 COMPR EHENS CORI METAB OLIC PANEL bilirubin, total 0.60 mg/dL 0.20-1 .30 Not Available [facility] (Lab) [address] [place], [address], 12/04/2023 18:50:01 12/04/19 24 12/04/2023 COMPR EHENS CORI METAB OLIC PANEL calcium 9.2 mg/dL 8.4-10 .2 Not Available [facility] (Lab) [address] [place], [address], 12/04/2023 18:50:01 12/04/19 24 12/04/2023 COMPR EHENS CORI METAB OLIC PANEL total protein 7.1 g/dL 6.3-8. 2 Not Available [facility] (Lab) [address] [place], [address], 12/04/2023 18:50:01 12/04/19 24 12/04/2023 COMPR EHENS CORI METAB OLIC PANEL albumin 4.3 g/dL 3.0-4. 4 Not Available [facility] (Lab) [address] [place], [address], 12/04/2023 18:50:01 12/04/19 24 12/04/2023 COMPR EHENS CORI METAB OLIC PANEL globulin 2.8 g/dL 2.6-4. 2 Not Available [facility] (Lab) [address] [place], [address], 12/04/2023 18:50:01 12/04/19 24 12/04/2023 COMPR EHENS CORI METAB OLIC PANEL A/G ratio 1.5 ratio 1.0-2. 0 Not Available [facility] (Lab) [address] [place], [address], 12/04/2023 18:50:01 12/04/19 24 12/04/2023 T4 FREE free T4 1.05 NG/dL 0.78-2 .19 Not Available [facility] (Lab) [address] [place], [address], 12/04/2023 19:07:33 12/04/19 24 12/04/2023 TSH thyroid-stim ulating hormone 1.870 uIU/m L 0.465- 4.680 Not Available [facility] (Lab) [address] [place], [address], 12/04/2023 19:55:12 12/04/19 24 12/04/2023 HEMOG LOBIN A1C HA1C 5.7 % 4.0-6. 0 Diabe amarilis Scree gideon Crite gallito: <5.7% Consi stent with absen ce of diabe amarilis 5.7-6 .4% Consi stent with incre ased risk for diabe amarilis (pred iabet es) >OR=6 .5% Consi stent with diabe amarilis REFER ENCE: Diabe amarilis Care 2016, 39(Green ppl.1 ):s13 -s22 Not Available [facility] (Lab) [address] [place], [address], 12/04/2023 20:46:26 08/04/2008/04/2024 CBC/C OMPLE TE BLD COUNT W/DIF F white blood cells 9.6 x10'3 /uL 4.2-10 .8 Not Available [facility] (Lab) [address] [place], [address], 08/04/2024 18:18:48 08/04/2008/04/2024 CBC/C OMPLE TE BLD COUNT W/DIF F red blood cells 4.99 x10'6 /uL 4.10-5 .80 Not Available [facility] (Lab) [address] [place], [address], 08/04/2024 18:18:48 08/04/2008/04/2024 CBC/C OMPLE TE BLD COUNT W/DIF F hemoglobin 15.6 g/dL 13.2-1 7.0 Not Available [facility] (Lab) [address] [place], [address], 08/04/2024 18:18:48 08/04/2008/04/2024 CBC/C OMPLE TE BLD COUNT W/DIF F hematocrit 47.4 % 39.3-5 0.0 Not Available [facility] (Lab) [address] [place], [address], 08/04/2024 18:18:48 08/04/2008/04/2024 CBC/C OMPLE TE BLD COUNT W/DIF F mean red cell volume 95.0 fL 80.0-9 7.0 Not Available [facility] (Lab) [address] [place], [address], 08/04/2024 18:18:48 08/04/2008/04/2024 CBC/C OMPLE TE BLD COUNT W/DIF F mean red cell hemoglobin 31.3 pg 27.0-3 3.0 Not Available [facility] (Lab) [address] [place], [address], 08/04/2024 18:18:48 08/04/2008/04/2024 CBC/C OMPLE TE BLD COUNT W/DIF F mean RBC HGB concentratio n 32.9 g/dL 31.0-3 6.0 Not Available [facility] (Lab) [address] [place], [address], 08/04/2024 18:18:48 08/04/2008/04/2024 CBC/C OMPLE TE BLD COUNT W/DIF F red cell distribution width 12.7 % 11.8-1 5.5 Not Available [facility] (Lab) [address] [place], [address], 08/04/2024 18:18:48 08/04/2008/04/2024 CBC/C OMPLE TE BLD COUNT W/DIF F platelets 210 x10'3 /uL 150-40 0 Not Available [facility] (Lab) [address] [place], [address], 08/04/2024 18:18:48 08/04/2008/04/2024 CBC/C OMPLE TE BLD COUNT W/DIF F mean platelet volume 9.8 fL 9.0-12 .4 Not Available [facility] (Lab) [address] [place], [address], 08/04/2024 18:18:48 08/04/2008/04/2024 CBC/C OMPLE TE BLD COUNT W/DIF F neutrophils 67.5 % 39.0-7 2.0 Not Available [facility] (Lab) [address] [place], [address], 08/04/2024 18:18:48 08/04/2008/04/2024 CBC/C OMPLE TE BLD COUNT W/DIF F lymphocytes 21.0 % 16.0-4 7.0 Not Available [facility] (Lab) [address] [place], [address], 08/04/2024 18:18:48 08/04/2008/04/2024 CBC/C OMPLE TE BLD COUNT W/DIF F monocytes 8.9 % 5.0-12 .0 Not Available [facility] (Lab) [address] [place], [address], 08/04/2024 18:18:48 08/04/2008/04/2024 CBC/C OMPLE TE BLD COUNT W/DIF F eosinophils 1.9 % 1.0-7. 0 Not Available [facility] (Lab) [address] [place], [address], 08/04/2024 18:18:48 08/04/2008/04/2024 CBC/C OMPLE TE BLD COUNT W/DIF F basophils 0.4 % 0.0-2. 0 Not Available [facility] (Lab) [address] [place], [address], 08/04/2024 18:18:48 08/04/2008/04/2024 CBC/C OMPLE TE BLD COUNT W/DIF F immature granulocytes 0.3 % 0.00-0 .50 Not Available [facility] (Lab) [address] [place], [address], 08/04/2024 18:18:48 08/04/2008/04/2024 CBC/C OMPLE TE BLD COUNT W/DIF F neutrophils, absolute count 6.46 x10'3 /uL 1.5-8. 0 Not Available [facility] (Lab) [address] [place], [address], 08/04/2024 18:18:48 08/04/2008/04/2024 CBC/C OMPLE TE BLD COUNT W/DIF F lymphocytes, absolute count 2.01 x10'3 /uL 1.07-3 .43 Not Available [facility] (Lab) [address] [place], [address], 08/04/2024 18:18:48 08/04/2008/04/2024 CBC/C OMPLE TE BLD COUNT W/DIF F monocytes, absolute count 0.85 x10'3 /uL 0.29-0 .99 Not Available [facility] (Lab) [address] [place], [address], 08/04/2024 18:18:48 08/04/2008/04/2024 CBC/C OMPLE TE BLD COUNT W/DIF F eosinophils, absolute count 0.18 x10'3 /uL 0.02-0 .53 Not Available [facility] (Lab) [address] [place], [address], 08/04/2024 18:18:48 08/04/20 24 08/04/2024 CBC/C OMPLE TE BLD COUNT W/DIF F basophils, absolute count 0.04 x10'3 /uL 0.01-0 .08 Not Available [facility] (Lab) [address] [place], [address], 08/04/2024 18:18:48 08/04/2008/04/2024 CBC/C OMPLE TE BLD COUNT W/DIF F immature granulocytes ,absolute 0.03 x10'3 /uL 0.00-0 .05 Not Available [facility] (Lab) [address] [place], [address], 08/04/2024 18:18:48 08/04/2008/04/2024 CBC/C OMPLE TE BLD COUNT W/DIF F nucleated red blood cells 0.0 % -0 Not Available [facility] (Lab) [address] [place], [address], 08/04/2024 18:18:48 08/04/20 24 08/04/2024 CBC/C OMPLE TE BLD COUNT W/DIF F NRBC# 0.00 x10'3 /uL Not Available [facility] (Lab) [address] [place], [address], 08/04/2024 18:18:48 08/04/2008/04/2024 MICRO ALBUM IN RANDO M URINE microalbumin , urine 20.6 mg/L 0.0-16 .6 high Not Available [facility] (Lab) [address] [place], [address], 08/04/2024 18:30:06 08/04/2008/04/2024 COMPR EHENS CORI METAB OLIC PANEL sodium 141 mmol/ L 137-14 5 Not Available [facility] (Lab) [address] [place], [address], 08/04/2024 18:49:26 08/04/2008/04/2024 COMPR EHENS CORI METAB OLIC PANEL potassium 4.8 mmol/ L 3.5-5. 1 Not Available [facility] (Lab) [address] [place], [address], 08/04/2024 18:49:26 08/04/2008/04/2024 COMPR EHENS CORI METAB OLIC PANEL chloride 106 mmol/ L 98-107 Not Available [facility] (Lab) [address] [place], [address], 08/04/2024 18:49:26 08/04/2008/04/2024 COMPR EHENS CORI METAB OLIC PANEL carbon dioxide 25 mmol/ L 22-30 Not Available [facility] (Lab) [address] [place], [address], 08/04/2024 18:49:26 08/04/2008/04/2024 COMPR EHENS CORI METAB OLIC PANEL anion gap 14.8 mmol/ L 14-22 Not Available [facility] (Lab) [address] [place], [address], 08/04/2024 18:49:26 08/04/2008/04/2024 COMPR EHENS CORI METAB OLIC PANEL glucose 96 mg/dL 70-99 Not Available [facility] (Lab) [address] [place], [address], 08/04/2024 18:49:26 08/04/2008/04/2024 COMPR EHENS CORI METAB OLIC PANEL BUN 25 mg/dL 8-19 high Not Available [facility] (Lab) [address] [place], [address], 08/04/2024 18:49:26 08/04/20 24 08/04/2024 COMPR EHENS CORI METAB OLIC PANEL creatinine 1.07 mg/dL 0.66-1 .25 Not Available [facility] (Lab) [address] [place], [address], 08/04/2024 18:49:26 08/04/2008/04/2024 COMPR EHENS CORI METAB OLIC PANEL GFR >60 Refer ence Range : [place] ge GFR Healt hy Adult : >60 mL/mi n/1.7 3 m2 Chron ic Kidne y Disea se: 15-60 mL/mi n/1.7 3 m2 Kidne y Failu re: <15/m L/min /1.73 m2 www.n iddk. nih.g ov The MDRD study equat ion has not been valid ated in child alcon <18 years of age; pregn ant women ; the elder ly >85 years of age; or in some racia l or ethni c subgr oups, such as Hisia nics. Outsi de the valid ated oniel eters , estim ated GFR is less accur ate, requi ring clini peter judgm ent on a case- by-ca se basis . Clini peter inter preta tion for other races and ages must be made by the clini keke. The MDRD study equat ion has not been valid ated for the evalu ation of serum creat inine relat ed to nutri cuate l statu s or medic ation usage . For perso ns <18 years of age, a pedia tric GFR calcu lator is avail able on the [facility] websi te: https ://tracie w.jean rosas.o rg/pr ofess ional s/kdo qi/gf r_cal culat or Not Available [facility] (Lab) [address] [place], [address], 08/04/2024 18:49:26 08/04/20 24 08/04/2024 COMPR EHENS CORI METAB OLIC PANEL alkaline phosphatase 57 U/L 38-126 Not Available [facility] (Lab) [address] [place], [address], 08/04/2024 18:49:26 08/04/2008/04/2024 COMPR EHENS CORI METAB OLIC PANEL alanine aminotransfe rase 8 U/L 0-50 Not Available [facility] (Lab) [address] [place], [address], 08/04/2024 18:49:26 08/04/2008/04/2024 COMPR EHENS CORI METAB OLIC PANEL aspartate aminotransfe rase 26 U/L 15-46 Not Available [facility] (Lab) [address] [place], [address], 08/04/2024 18:49:26 08/04/2008/04/2024 COMPR EHENS CORI METAB OLIC PANEL bilirubin, total 1.00 mg/dL 0.20-1 .30 Not Available [facility] (Lab) [address] [place], [address], 08/04/2024 18:49:26 08/04/2008/04/2024 COMPR EHENS CORI METAB OLIC PANEL calcium 9.8 mg/dL 8.4-10 .2 Not Available [facility] (Lab) [address] [place], [address], 08/04/2024 18:49:26 08/04/2008/04/2024 COMPR EHENS CORI METAB OLIC PANEL total protein 7.3 g/dL 6.3-8. 2 Not Available [facility] (Lab) [address] [place], [address], 08/04/2024 18:49:26 08/04/2008/04/2024 COMPR EHENS CORI METAB OLIC PANEL albumin 4.6 g/dL 3.0-4. 4 high Not Available [facility] (Lab) [address] [place], [address], 08/04/2024 18:49:26 08/04/2008/04/2024 COMPR EHENS CORI METAB OLIC PANEL globulin 2.7 g/dL 2.6-4. 2 Not Available [facility] (Lab) [address] [place], [address], 08/04/2024 18:49:26 08/04/2008/04/2024 COMPR EHENS CORI METAB OLIC PANEL A/G ratio 1.7 ratio 1.0-2. 0 Not Available [facility] (Lab) [address] [place], [address], 08/04/2024 18:49:26 08/04/2008/04/2024 LIPID PANEL cholesterol 129 mg/dL 140-19 9 low NIH TRICIA NSUS RECOM MENDA TION FOR JORGE STERO L: ADULT CHILD LOW RISK: <200 <170 BORDE RLINE : <200- 239 ----- HIGH RISK: >240 >200 Not Available [facility] (Lab) [address] [place], [address], 08/04/2024 18:49:31 08/04/2008/04/2024 LIPID PANEL triglyceride s 98 mg/dL 0-150 NIH TRICIA NSUS REPOR T RECOM MENDA TION FOR TRIGL YCERI MARVEL: ADULT CHILD LOW RISK: <150 ----- BODER LINE: 150-1 99 ----- HIGH RISK: >200 ----- Not Available [facility] (Lab) [address] [place], [address], 08/04/2024 18:49:31 08/04/2008/04/2024 LIPID PANEL HDL cholesterol 40 mg/dL 40- Not Available [facility] (Lab) [address] [place], [address], 08/04/2024 18:49:31 08/04/2008/04/2024 LIPID PANEL LDL cholesterol, calculated 69 mg/dL 0-130 NIH TRICIA NSUS REPOR T RECOM MENDA TIONS FOR LDL: ADULT CHILD LOW RISK <130 <110 (OPTI MAL LDL) <100 ----- BORDE RLINE : 130-1 59 ----- HIGH RISK: >160 >130 A TRIGL YCERI DE RESUL T >400 INVAL IDATE S THE CALCU LATIO N FOR LDL FRACT IONAT ION - THE LDL RESUL T WILL NOT BE REPOR WERO. Not Available [facility] (Lab) [address] [place], [address], 08/04/2024 18:49:31 08/04/2008/04/2024 T4 FREE free T4 0.91 NG/dL 0.78-2 .19 Not Available [facility] (Lab) [address] [place], [address], 08/04/2024 19:13:06 08/04/2008/04/2024 TSH thyroid-stim ulating hormone 1.610 uIU/m L 0.465- 4.680 Not Available [facility] (Lab) [address] [place], [address], 08/04/2024 19:40:29 08/04/2008/04/2024 PSA, TOTAL PSA, total 1.55 NG/mL 0.00-4 .00 Not Available [facility] (Lab) [address] [place], [address], 08/04/2024 19:40:34 08/04/2008/04/2024 HEMOG LOBIN A1C HA1C 5.9 % 4.0-6. 0 Diabe amarilis Scree gideon Crite gallito: <5.7% Consi stent with absen ce of diabe amarilis 5.7-6 .4% Consi stent with incre ased risk for diabe amarilis (pred iabet es) >OR=6 .5% Consi stent with diabe amarilis REFER ENCE: Diabe amarilis Care 2016, 39(Green ppl.1 ):s13 -s22 Not Available [facility] (Lab) [address], [place], [address], 08/04/2024 20:16:41 09/09/[address], abdom en + pelvi s, w/o contr ast [facility] [address], [place] [address] Patien t Name: ADEBAYO MORRIS ion #: [id number] Sex: M : 1954 7 Dictat ed By: Andrew De Dios Attend ing Physic stephanie: SUKHJINDER RODRIGUEZ CE Orderi Physic stephanie: SUKHJINDER RODRIGUEZ CE Exam Date: Exam Name: CT ABDOME N/PELV IS WO Admitt ing Diagno sis(es ): Exam: CT abdome n and Pelvis withou t contra st Histor y: pain Compar samir Study: None availa ble at time of dictat ion. Techni que: Multid etecto r spiral CT of the abdome n was perfor med from lung bases to pubic symphy sis. Imagin g was perfor med withou t IV contra st. Axial, triplett l and sagitt al multip lanar reform ats were obtain ed from the axial data set by the techno logist . ORAL contra st admini stered Radiat ion Dose : 1. Abdome n/Pelv is: CTDIvo l 25 mGy, DLP 250 mGy*cm . Findin gs: Evalua tion of solid organs is limite d due to lack of intrav enous contra st use. Lung Bases: No acute or signif icant lung base findin g. Normal heart size. No pleura l or perica rdial effusi on. Liver: The liver is normal in size. No focal lesion s. Gallbl adder and Biliar y Tree: Unrema rkable Spleen : Unrema rkable Pancre as: The pancre as is grossl y normal in appear ance. Adrena l Glands : Unrema rkable Kidney s: Kidney s are grossl y normal withou t calcul i or hydron ephros is. Page 1 [facility] [address] [facility] [place] [address] Patien t Name: ADEBAYO MORRIS ion #: [id number] Sex: M : 1954 7 Dictat ed By: Andrew De Dios Attend ing Physic stephanie: JOSE HAQUE Orderi Physic stephanie: SUKHJINDER RODRIGUEZ CE Exam Date: 2022 13:26 PM Exam Name: CT ABDOME N/PELV IS WO Admitt ing Diagno sis(es ): Bladde r: Grossl y unrema rkable for degree of disten tion. Bowel: The stomac h is grossl y normal in appear ance. Small bowel and colon are normal in calibe r and distri bution . The append ix is not visual ized; howeve r, no second mayela findin gs of acute append icitis identi fied. Ascite s: Absent Lympha denopa thy: No mesent brennon, retrop eriton eal or peripo rtal lympha denopa thy. Abdomi nal Wall and Mesent daina: Unrema rkable . Vascul ature: The visual ized abdomi nal aorta is normal in size and calibe r. Evalua tion of abdomi nal and pelvic vessel s is limite d due to lack of intrav enous contra st. Pelvic Organs : Unrema rkable Muscul oskele hayden: No aggres sive focal bony lesion s, acute fractu res or disloc ation. IMPRES BIPIN: 1. No acute abdomi nal or pelvic findin gs. END IMPRES BIPIN: Electr onical ly Signed by: Andrew De Dios at 2022 23:58: 42 PM Page [address] (Imaging) [address] [place], [address], 09/09/2023 06:36:24 11/02/19 25 11/02/2024 elect romyo gram + nerve condu ction study No observ ation record ed. [place] [id number] [facility] [address], [place], [address], 11/02/2024 15:24:09 Result Notes None recorded. Problems Name Problem SNOMED Code Status Onset Date Resolution Date Notes Provider Name and Address Organization Details Recorded Time Benign essential hypertens ion 0117292 Completed Not Available [facility] 3 15:16:55 Serum creatinin e outside reference range 938927015 Active Not Available [facility] 3 15:16:55 Tear of meniscus of knee 568317534 Active Not Available [facility] 3 15:16:55 Tear of meniscus of knee 223416073 Active 2021 Not Available [facility] 3 15:16:55 Pure hyperchol esterolem ia 134905797 Active Not Available [facility] 3 15:16:56 Current tear of medial cartilage AND/OR meniscus of knee Active Not Available [facility] 3 15:16:56 Restless legs 70713227 Active Not Available [facility] 3 15:16:56 Postconcu ssion syndrome 95647759 Active Not Available [facility] 3 15:16:56 Type 2 diabetes mellitus 53622896 Active Not Available [facility] 3 15:16:56 Screening for malignant neoplasm of prostate Active 2021 Not Available [facility] 3 15:16:56 Cervical radiculop athy 03095443 Active Not Available [facility] 3 15:16:56 Essential hypertens ion 13148276 Active Not Available [facility] 3 15:16:57 Hyperglyc inemia 25551973 Active Not Available [facility] 3 15:16:57 Polyp of colon 16078241 Active 2020 Not Available [facility] 3 15:16:57 Secondary restless legs syndrome 602107377 Active 2022 Not Available [facility] 3 15:16:57 Diabetes mellitus 42819263 Completed Not Available [facility] 3 15:16:57 Sleep apnea 01868774 Active Not Available [facility] 3 15:16:57 Neck pain 67533880 Active Not Available [facility] 3 15:16:57 Pain in limb 93631351 Active Not Available [facility] 3 15:16:57 Obese class II [id number] 4105 Active 2022 Kota Rodriguez MD [address], [address], [place], [address] , [facility] 3 12:50:30 Disorder of prostate 54735961 Active 2022 Kota Rodriguez MD [address], [address], [place], [address] , [facility] 3 12:54:59 Abdominal pain 54376367 Active 2022 AVRIL Roland, [facility] 3 13:04:34 Obese class I 44446541483 4107 Active 2023 Kota Rodriguez MD [address], [address], [place], [address] , [facility] 4 12:35:52 Pruritic rash 14635893 Active 2023 Kota Rodriguez MD [address], [address], [place], [address] , [facility] 4 15:40:09 Carpal tunnel syndrome 69994551 Active 2023 Karen beth, [facility] 4 11:20:19 Contusion of toe(s) with damage to nail 944550887 Active 2023 Kota Rodriguez MD [address], [address], [place], [address] , [facility] 4 16:54:19 Numbness of hand 414753926 Active 2024 AVRIL Roland, [place] [facility] [place] [facility] 5 15:56:37 Problem Notes None recorded. Procedures Surgical History None recorded. Imaging Results Imaging Date Name Status LastModified by Organization Details LastModified Time 09/09/2023 CT, abdomen + pelvis, w/o contrast completed [address] (Imaging) [address], [place], [address], 09/09/2023 06:36:24 11/02/2024 electromyogram + nerve conduction study completed [address] [facility] [address], [place], [address], 11/02/2024 15:24:09 Procedure Notes None recorded. Medical Equipment None Reported. Medications Name Sig Start Date Stop Date Status Note LastModified by Organization Details LastModified Time metformin 500 mg tablet TAKE 2 TABLETS BY MOUTH TWICE DAILY active Not Available Not Available No t Available azithromyci n 250 mg tablet TAKE 2 TABLETS (500 MG) BY ORAL ROUTE ONCE DAILY FOR 1 DAY THEN 1 TABLET (250 MG) BY ORAL ROUTE ONCE DAILY FOR 4 DAYS 11/15 completed Not Available Not Available Not Available aspirin 325 mg tablet Take 2 tablets every day by oral route. 10/21 completed Not Available Not Available Not Available pravastatin 40 mg tablet TAKE 1 TABLET BY MOUTH DAILY active Not Available Not Available No t Available lisinopril 20 mg tablet TAKE 1 TABLET BY MOUTH DAILY active Not Available Not Available No t Available permethrin 5 % topical cream PLEASE SEE ATTACHED FOR DETAILED DIRECTION S active Not Available Not Available No t Available topiramate 25 mg tablet Take 1 tablet every day by oral route. 10/21 completed Not Available Not Available Not Available hydrocodone 10 mg-acetamin ophen 325 mg tablet TAKE 1 TABLET BY MOUTH EVERY 6 HOURS active Not Available Not Available No t Available aspirin 81 mg tablet,joaquín yed release Take 1 tablet every day by oral route. 2013 active Not Available Not Available Not Avai lable triamcinolo ne acetonide 0.1 % topical cream APPLY THIN COAT TO AFFECTED AREA TWICE A DAY 2024 active Not Available Not Available Not Avai lable amoxicillin 500 mg tablet 09/08 completed Not Available Not Available Not Available glimepiride 2 mg tablet TAKE 1 TABLET BY MOUTH TWICE DAILY active Not Available Not Available No t Available ropinirole 2 mg tablet TAKE 1 TABLET BY MOUTH AT BEDTIME active Not Available Not Available No t Available cephalexin 500 mg capsule Take 1 capsule every 6 hours by oral route. active Not Available Not Available No t Available cyanocobala min (vit B-12) 1,000 mcg/mL injection solution Inject 1 mL every week by intramusc ular route. 04/20 completed Not Available Not Available Not Available carbidopa 10 mg-levodopa 100 mg tablet TAKE 1 TABLET BY MOUTH 3 TIMES DAILY active Not Available Not Available No t Available indomethaci n 50 mg capsule Take 1 capsule 3 times a day by oral route. 01/25 completed Not Available Not Available Not Available hydrochloro thiazide 12.5 mg capsule TAKE 1 CAPSULE BY MOUTH DAILY active Not Available Not Available No t Available diclofenac sodium 75 mg tablet,joaquín yed release Take 1 tablet twice a day by oral route. 10/21 completed Not Available Not Available Not Available methylpredn isolone 4 mg tablets in a dose pack TAKE 6 TABLETS ON DAY 1 DIRECTED ON PACKAGE AND DECREASE BY 1 TAB EACH DAY FOR A TOTAL OF 6 DAYS 05/12 completed Not Available Not Available Not Available lisinopril 40 mg tablet Take 1 tablet every day by oral route. 2013 active Not Available Not Available Not Avai lable Topamax 50 mg tablet Take 1 tablet twice a day by oral route. 07/09 completed Not Available Not Available Not Available FreeStyle Corwin 14 Day Sensor kit use as directed to check blood sugars 2020 active Not Available Not Available Not Avai lable Vitals Date Recorded Body height Body mass index (BMI) Body weight Heart rate Body temperature Oxygen saturation Oxygen saturation in Arterial blood by Pulse oximetry Systolic blood pressure Diastolic blood pressure Provider Name and Address Organization Details Last Updated DateTime 3 193.04 cm 35.9 kg/m2 216700. 75 g 73 /min 97 [degF] 98 % 98 % 120 mm[Hg] 64 mm[Hg] Layne Cervantes [facility] [place] [facility] 3 14:16:18 Date Recorded Body height Body mass index (BMI) Body weight Heart rate Body temperature Oxygen saturation Oxygen saturation in Arterial blood by Pulse oximetry Systolic blood pressure Diastolic blood pressure Provider Name and Address Organization Details Last Updated DateTime 4 193.04 cm 34.8 kg/m2 760994. 42 g 70 /min 97 [degF] 96 % 96 % 140 mm[Hg] 78 mm[Hg] Layne Daniels [facility] Tomveyi Bidamon [facility] 4 12:22:51 Date Recorded Body height Body mass index (BMI) Body weight Heart rate Body temperature Oxygen saturation Oxygen saturation in Arterial blood by Pulse oximetry Systolic blood pressure Diastolic blood pressure Provider Name and Address Organization Details Last Updated DateTime 4 193.04 cm 32.3 kg/m2 521686. 98 g 69 /min 97.6 [degF] 98 % 98 % 120 mm[Hg] 76 mm[Hg] [facility] [employer] [facility] 4 11:58:51 Date Recorded Body height Body mass index (BMI) Body weight Heart rate Body temperature Oxygen saturation Oxygen saturation in Arterial blood by Pulse oximetry Systolic blood pressure Diastolic blood pressure Provider Name and Address Organization Details Last Updated DateTime 4 193.04 cm 31.2 kg/m2 371899. 65 g 68 /min 97 [degF] 98 % 98 % 118 mm[Hg] 64 mm[Hg] Aleida Salguero [facility] [employer] [facility] 4 12:12:40 Date Recorded Body height Body weight Heart rate Body temperature Oxygen saturation Oxygen saturation in Arterial blood by Pulse oximetry Systolic blood pressure Diastolic blood pressure Provider Name and Address Organization Details Last Updated DateTime 4 193.04 cm 601030. 12 g 69 /min 97 [degF] 95 % 95 % 120 mm[Hg] 74 mm[Hg] Aleida Salguero [facility] [employer] [facility] 4 16:42:43 Social History Question Answer Notes LastModified by Organizat ion Details LastModified Time Tobacco Smoking Status Never Smoker Not Available [employer] 12/10/2022 15:13:38 Do You Have An Advance Directive? Yes [id number] Information not available 12/10/2022 What Is Your Level Of Alcohol Consumption? None [id number].[id number] Information not available 12/10/2022 Are You Blind Or Do You Have Difficulty Seeing? No [id number].[id number] 5410 Information not available 12/10/2022 Are You Deaf Or Do You Have Serious Difficulty Hearing? No [id number].[id number] 0036 Information not available 12/10/2022 What Type Of Diet Are You Following? 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 No MIGRATION.[id number] 7706 Information not available 12/10/2022 What Is The Fluoride Status Of Your Home? Unknown [id number].[id number] 6040 Information not available 12/10/2022 Are There Any Guns Present In Your Home? Yes MIGRATION.[id number] 8797 Information not available 12/10/2022 Do You Use Insect Repellent Routinely? No [id number].[id number] 3878 Information not available 12/10/2022 [facility] MIGRATION.[id number] 0831 Information not available 12/10/2022 Do You Have A Medical Power Of Commodities Manager? Yes MIGRATION.[id number] 3676 Information not available 12/10/2022 What Was The Date Of Your Most Recent Tobacco Screening? 11/14/2022 MIGRATION.[id number] Information not available 12/10/2022 Do You Have Any Pets? Yes MIGRATION.924713 2815 Information not available 12/10/2022 What Is Your Relationship Status? MIGRATION.[id number] 6243 Information not available 12/10/2022 Do You Have Smoke And Carbon Monoxide Detectors In Your Home? Yes MIGRATION.578061 1651 Information not available 12/10/2022 Are You Passively Exposed To Smoke? No MIGRATION.244812 0874 Information not available 12/10/2022 Are There Any Smokers In Your House? No MIGRATION.575871 7494 Information not available 12/10/2022 Do You Use Sunscreen Routinely? No MIGRATION.202342 0002 Information not available 12/10/2022 Have You Recently Traveled Abroad? No MIGRATION.840169 4710 Information not available 12/10/2022 Do You Have Any Dietary Restrictions? No MIGRATION.025144 9416 Information not available 12/10/2022 Sex: Unknown Functional Status Question Answer Note LastModified by Organizat ion Details LastModified Time Do you have difficulty walking or climbing stairs? No [id number].[id number] 026 Information not available 12/10/2022 Do you have transportation difficulties? No MIGRATION.[id number] 026 Information not available 12/10/2022 Are you able to walk? YESWOREST MIGRATION.[id number] 026 Information not available 12/10/2022 Do you have difficulty doing errands alone? No MIGRATION.[id number] 026 Information not available 12/10/2022 Are you able to care for yourself? Yes MIGRATION.[id number] 026 Information not available 12/10/2022 Do you have difficulty dressing or bathing? No MIGRATION.[id number] 026 Information not available 12/10/2022 What is your exercise level? Moderate MIGRATION.[id number] 026 Information not available 12/10/2022 Mental Status Question Answer Note LastModified by Organizat ion Details LastModified Time Do you have difficulty concentrating, remembering or making decisions? No [id number].[id number] Information not available 12/10/2022 Family History Nothing Reported Notes:Mother 78 from CA of breast, Parkinsonism, and some form of gastric problem Father 78 from metastatic CA of Colon No brothers or sisters Several other relatives have from CA of Breast , duodenum and possible CA of colon Medical History Condition Response NERVE DISEASE N BLINDNESS N RHEUMATIC FEVER N KIDNEY STONES N BLADDER PROBLEMS N MRSA N OTHER # 1 N POLIO N LUNG DISEASE/DISORDER N HISTORY OF DRUG ABUSE N RADIATION / CHEMOTHERAPY N COPD N Other # 2 N BLOOD DISEASES N EAR OR HEARING PROBLEMS N MUMPS N SHINGLES N BOWEL PROBLEMS N DEPRESSION (INCLUDING POST ) N STROKE/TIA N ULCERS N BENIGN PROSTATIC HYPERPLASIA N MEASLES N HYPOTENSION N MYOCARDIAL INFARCTION N OBESITY N GERD/NAUSEA N ANEURYSM N URINARY/BLADDER/KIDNEY PROBLEMS N CORONARY ARTERY DISEASE (CAD) N ADDICTION CONCERNS N Impotence N ENDOMETRIOSIS N USE OF BLOOD THINNERS N SKIN PROBLEMS N GASTROINTESTINAL DISORDER N PERIPHERAL VASCULAR DISEASE N MUSCLE,JOINT OR BONE PROBLEMS N GASTROINTESTINAL BLEEDING N BLOOD CLOTS N ASTHMA N CATARACTS N ERECTILE DYSFUNCTION N VARICOSITIES N GI PROBLEMS N Low Testosterone N INFERTILITY N AIDS/HIV N CHEMOTHERAPY / RADIATION N LIVER DISEASE N MALE HYPOGONADISM N HYPERTENSION Y Deficiency N TOURETTE'S N ANXIETY DISORDER N BLOOD TRANSFUSION N ANEMIA/BLOOD DISORDER N CHRONIC EAR INFECTIONS N BRONCHITIS N TUBERCULOSIS N GLAUCOMA N FOOT PROBLEM N DIVERTICULITIS N SLEEP APNEA Y CHICKENPOX N INFECTIOUS DISEASE N PROSTATE N HEART ARRHYTHMIA N INSOMNIA N HIGH CHOLESTEROL / HYPERLIPIDEMIA Y EYE PROBLEMS N HYPERTHYROIDISM N EDEMA N CHRONIC PAIN SYNDROME N HYPOTHYROIDISM N CONSTIPATION N CAROTID BLOCKAGE N BACK / NECK PROBLEMS N HAVE YOU BEEN HOSPITALIZED OR SEEN IN [facility] IN THE PAST YEAR ? N ATHEROSCLEROSIS N BREAST PROBLEMS N DIALYSIS N ECZEMA N OSTEOPOROSIS N ARTHRITIS N NO SIGNIFICANT PAST MEDICAL HISTORY N APPENDICITIS N DIABETES, TYPE Y BAD TEETH N ENT N HEARTBURN / REFLUX N AUTISM SPECTRUM DISORDER (ASD) N HEPATITIS / LIVER DISEASE N GOUT N SLEEP DISORDER N ALZHEIMER'S DISEASE N Brain Problems N DEMENTIA N HERPES N SEIZURES/EPILEPSY N HEADACHES/MIGRAINES N VASCULAR DISEASE N PACEMAKER N Blood Disorder N DIZZINESS N HEART DISEASE/HEART PROBLEMS N KIDNEY DISEASE N MULTIPLE SCLEROSIS N CANCER: SPECIFY N CARDIAC ARRHYTHMIA N ATRIAL FIBRILLATION N Gall Stones N PULMONARY EMBOLISM N AUTOIMMUNE DISEASE N Immunizations Vaccine Type Date Status Note Provider Nam e and Address Organization Details Recorded Time SARS-COV-2 (COVID-19) vaccine, UNSPECIFIED 3 completed Not Available [facility] 12/10/2022 15:20:06 SARS-COV-2 (COVID-19) vaccine, UNSPECIFIED 2 completed Not Available [facility] 12/10/2022 15:20:06 influenza, unspecified formulation 2 completed Not Available [facility] 12/10/2022 15:20:06 COVID-19, mRNA, LNP-S, PF, 30 mcg/0.3 mL dose 1 completed Not Available [facility] 12/10/2022 15:20:06 SARS-COV-2 (COVID-19) vaccine, UNSPECIFIED 1 completed Not Available [facility] 12/10/2022 15:20:06 SARS-COV-2 (COVID-19) vaccine, UNSPECIFIED 1 completed Not Available [facility] 12/10/2022 15:20:06 Influenza, high-dose, quadrivalent, PF 1 completed Not Available [facility] 12/10/2022 15:20:06 Past Encounters Encounter ID Performer Location Encounter Start Date Encounter Closed Date Diagnosis/Indication Diagnosis SNOMED-CT Code Diagnosis ICD10 Code Diagnosis Note [id number] [facility] Med [place] [address] [place] [address] 04/26/2021 00:00:00 04/26/2021 13:18:03 [id number] [facility] Internal Med [place] [address] [place] [address] 11/15/2021 00:00:00 11/15/2021 15:11:[id number] [facility] Internal Med [place] [address] [place] [address] y , [place] [address] 05/16/2022 00:00:00 05/16/2022 12:27:[id number] [facility] Internal [place] [address] [place] [address] y , [place] [address] 11/14/2022 00:00:00 11/14/2022 12:27:29 [id number] Kota Rodriguez MD [facility] Internal Med [place] [address] [place] [address] [place] [address] 05/15/2023 12:02:58 05/15/2023 13:06:29 Essential hypertension 04092324 I10 Pure hypercholesterolemia 981804881 E78.00 Type 2 bogdan betes mellitus 03427908 E11.9 Obese class II 084505013 1 75870 E66.9 Disorder of prostate 302 08458 N42.9 [id number] Kota Rodriguez MD [facility] Internal Med [place] [address] [place] [address] y , [place] [address] 09/08/2023 14:13:01 09/08/2023 14:39:58 Abdominal pain 36174114 R10.9 [id number] Kota Rodriguez MD [facility] Internal Med [facility] [address] [address] 11/13/2023 12:19:06 11/13/2023 16:38:12 Essential hypertension 60351410 I10 Pure hypercholesterolemia 932269837 E78.00 Type 2 bogdan betes mellitus 71847855 E11.9 Obese class I 2572304708 80632 E66.9 [id number] Kota Rodriguez MD [facility] Internal Med [place] [address] [place] [address] [place] [address] 05/12/2024 11:54:16 05/12/2024 12:34:41 Essential hypertension 89005127 I10 Pure hypercholesterolemia 302565459 E78.00 Type 2 bogdan betes mellitus 74120493 E11.9 Disorder of prostate 302 20956 N42.9 [id number] Kota Rodriguez MD [facility] Internal Med [facility] [address] [facility] [address], [place] [address] 08/04/2024 12:06:44 08/04/2024 13:00:59 Essential hypertension 29232304 I10 Pure hypercholesterolemia 611452367 E78.00 Type 2 bogdan betes mellitus 66724039 E11.9 Disorder of prostate 302 41803 N42.9 [id number] Kota Rodriguez MD [facility] Primary Care [facility] [address] [place] [address] 09/22/2024 16:32:09 09/22/2024 17:10:47 Contusion of toe(s) with damage to nail 689283829 S90.222A Health Concerns Section Related Observation LastModified by Organization Detai ls LastModified Time None Recorded Concern Status LastModified by Organization Details LastModified Time None Recorded Advance Directives Directive Y: Payers Encounter Date Sequence Insurance Name Policy Number Policy [place] Covered Member ID [place] Member ID Guarantor Name 09/08/2023 1 [facility] (MEDICARE REPLACEMENT/A DVANTAGE - HMO) [id number] Adebayo Marshall [id number] Adebayo Marshall 11/13/2023 1 [facility] (MEDICARE REPLACEMENT/A DVANTAGE - HMO) [id number] Adebayo Marshall [id number] Adebayo Marshall 05/12/2024 1 [facility] (MEDICARE REPLACEMENT/A DVANTAGE - HMO) [id number] Adebayo Marshall [id number] Adebayo Marshall 08/04/2024 1 [facility] (MEDICARE REPLACEMENT/A DVANTAGE - HMO) [id number] Adebayo Marshall [id number] Adebayo Marshall 09/22/2024 1 [facility] (MEDICARE REPLACEMENT/A DVANTAGE - HMO) [id number] Adebayo Marshall [id number] Adebayo Marshall Notes Date Note Type Note Provider Name and Address Organization Details Recorded Time 023 text/ht ml Patient Name: Adebayo MarshallDate Of Service: Thursday ( 09.08.2023 ): 1955 Age: 68 There has been approximately a 1 lb weight loss since 05/15/2023. This represents approximately a .3% change in weight. Weight change attributable to lifestyle changes. Vital Signs:Blood Pressure: Sitting Rt. Arm 120/64Pulse: Sitting 73 /min and RegularRespiratory Rate: 12Height 76 in or 1.9 mWeight 295 lb or 133.8 kgBMI 35.9Pulse Oximetry: 98 % at rest on no oxygen Chief Complaint: Addressed in HPI Problems or conditions discussed in the HPI were the only ones reviewed during the encounter.Only social and family history addressed in the HPI were reviewed during this encounter. Attendant(s): NoneConstitutional and Systemic Symptoms:none Medication Reconciliation: from medication list. History of Present Illness #1. 2-3 week history of intermittent abdominal pain. Location left lower and right lower quadrant left greater than right. No associated nausea, vomiting, hematochezia, melena or any other change in bowel consistency outside the fact that he notices after an attack he may have loose bowels for several days. Denies any history of any fever, chills or other constitutional symptoms. Strong family history of underlying cancer of the colon. Has had a colonoscopy done the last three years. Pain on a scale of 1-10 approximately a six. Describes somewhat as a cramping like sensation with some minimal tenderness when placing hands on the abdomen suggestive some minimal rebound. No evidence of any pain at this time.:Medication List Reviewed and Reconciled 3Carbidopa/Levodopa 25-250 One HsHydrochlorothiazide 12.5 MG (CAPSULE - ORAL) One Daily For HtnPravachol 40 MG (TABLET - ORAL) One Hs For CholesterolLisinopril 20 MG TABLET One DailyGlucophage 1 GM (TABLET - ORAL) One BidAspirin 325 MG Two DailyAmaryl 2 MG (TABLET - ORAL) One BidVaccination and Ecopxiumjloy4424-58 Covid Booster [id number] [id number] Covid PfizerSurgical HistoryAppendectomyPreventative Testing Confirmed by Our Gbuczdy7905/28/2023 ALBUMIN 4.1 G/DL N005/28/2023 PSA 1.42 NG/ML N005/28/2023 HAIC 6.6 % H011/28/2022 MICRO ALBUMIN 39.1 MG/L H010/20/2021 COLONOSCOPY ( 5 YEARS ) 10/20/2026Social 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 drinkWorks as tax attorneyFamily HistoryMother 78 from CA of breast, Parkinsonism, and some form of gastric problemFather 78 from metastatic CA of ColonNo brothers or sistersSeveral other relatives have from CA of Breast , duodenum and possible CA of colon Kota Rodriguez MD [address] [facility], [facility] [address], [place], [address], [place] [facility] [place] [facility] 09/08/2023 14:26:17 024 text/ht ml Patient Name: Adebayo Ramos Of Service: Thursday ( 11.13.2023 ): 1955 Age: 68 There has been approximately a 9 lb weight loss since 09/08/2023. This represents approximately a 3.1% change in weight. Weight change attributable to lifestyle changes. Vital Signs:Blood Pressure: Sitting Rt. Arm 140/78Pulse: Sitting 70 /min and RegularRespiratory Rate: 12Height 76 in or 1.9 mWeight 286 lb or 129.7 kgBMI 34.8Temperature: 97 F or 36.1 CDCCT HAIC: 6.6 Calculated MB mg%Pulse Oximetry: 96 % at rest on no oxygen Chief Complaint: Addressed in HPI Problems or conditions discussed in the HPI were the only ones reviewed during the encounter.Only social and family history addressed in the HPI were reviewed during this encounter. Attendant(s): NoneConstitutional and Systemic Symptoms:none Medication Reconciliation: from medication list. [id number]: CT scan abdomen and pelvis without contrast demonstrates no intra-abdominal abnormalities to account for any type of recurrent abdominal pain. Family history of colon cancer and has had a recent colonoscopy. Blood count CBC and CMP normal. History of Present Illness #1. Essential Hypertension: Stage: Stage I Interval Neurological Complaints no headaches, dizziness, weakness, visual changes, ataxia, aphasia and apraxia. No shortness of breath, orthopnea or cardiovascular symptoms. No other symptoms related to end organ damage. Pressure has been under excellent control. Currently marginally elevated and will recheck in two weeks. No other end organ symptoms or findings. Therapy reviewed regarding management of hypertension and includes salt restriction and Lisinopril. #2. Type II Hypercholesterolaemia: Currently taking medication and tolerating well. No interval complaints of any muscle pain or arthralgia. No significant liver changes with medications. Last lipid panel: fair control. Therapy reviewed regarding treatment of cholesterol management and include diet and Pravachol. #3. Type II Diabetes: Has had no polyuria polyphagia or polydipsia. Has had no hypoglycemic like responses. No new history of any numbness, tingling, weakness or visual problems. No nausea, anorexia or other constitutional symptoms. There has been no foot problems or non healing lesions. The last HAIC was DCCT HAIC: 6.6 Calculated MB mg%. Average blood sugars unknown. Checking sugars : infrequently Medication Types Include: Metformin and Sulfonylureas Secondary complications include none. Macro-vascular complications include none. Therapy reviewed regarding diabetic management and include Amaryl and Glucophage Compliance: good Renal Protection: ALONDRA inhibitors Lipid management: statins Urinary microalbumin: A1 . Ophthalmological: has seen eye doctor within the last year #4. Hx of obesity. Currently Class 1 Obesity BMI 30-34.99. Has tried numerous dietary support and supplements with no benefit. Instructed on the health consequences of the obese status particularly cancer - diabetes and heart disease. Discussed new modalities of weight loss including GLP-1 medications that are used to treat diabetes. Potential candidate for bariatric surgery: No. Wishes to be evaluated by Dietary: No and was offered to be evaluated and instructed by interceptor operator on weight loss diet. Active Medication ListCarbidopa/Levodopa 25-250 One HsHydrochlorothiazide 12.5 MG (CAPSULE - ORAL) One Daily For HtnPravachol 40 MG (TABLET - ORAL) One Hs For CholesterolLisinopril 20 MG TABLET One DailyGlucophage 1 GM (TABLET - ORAL) One BidAspirin 325 MG Two DailyAmaryl 2 MG (TABLET - ORAL) One Bid Vaccination and Ebcdldagszio6574-32 Covid Booster Gwaqyf6905-13 Iyakrytlp6044-40 Covid Pfizer Surgical Ahomucr6169-13 Appendectomy Preventative Testing Confirmed by Our Dvhsylr0909/08/2023 ALBUMIN 3.8 G/DL N005/28/2023 PSA 1.42 NG/ML N005/28/2023 HAIC 6.6 % H02/ MICRO ALBUMIN 39.1 MG/L H010/20/2021 COLONOSCOPY ( 5 YEARS ) 10/20/2026 Social 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 Family HistoryMother 78 from CA of breast, Parkinsonism, and some form of gastric problemFather 78 from metastatic CA of ColonNo brothers or sistersSeveral other relatives have from CA of Breast , duodenum and possible CA of colon TEST RESULT RANGE UNITSHEMOGLOBIN A1C Date: 05/28/2023HA1C 6.6 4.0-6.0 %LIPID PANEL Date: 05/28/2023HOLESTEROL 159 140-199 MG/DLTRIGLYCERIDES 165 0-150 MG/DLHDL CHOLESTEROL 30 40- MG/DLLDL CHOLESTEROL, CALCULATED 96 0-130 MG/DLPSA SCREEN Date: 05/28/2023SA MEDICARE SCREEN 1.42 0.00-4.00 NG/ML Kota Rodriguez MD [address] [facility], [facility] [address], [place], [address], [place] [facility] [employer] 11/13/2023 12:39:14 024 text/ht ml Patient Name: Adebayo Ramos Of Service: May ( 05.12.2024 ): 1955 Age: 69 There has been approximately a 21 lb weight loss since 11/13/2023. This represents approximately a 7.3% change in weight. Weight change attributable to lifestyle changes. Vital Signs:Blood Pressure: Sitting Rt. Arm 120/76Pulse: Sitting 69 /min and RegularRespiratory Rate: 14Height 76 in or 1.9 mWeight 265 lb or 120.2 kgBMI 32.3Temperature: 97.6 F or 36.4 CPulse Oximetry: 98 % at rest on no oxygen Chief Complaint: Addressed in HPI Problems or conditions discussed in the HPI were the only ones reviewed during the encounter.Only social and family history addressed in the HPI were reviewed during this encounter. Attendant(s): NoneConstitutional and Systemic Symptoms:none Medication Reconciliation: from medication list. [id number]: CT scan abdomen and pelvis without contrast demonstrates no intra-abdominal abnormalities to account for any type of recurrent abdominal pain. Family history of colon cancer and has had a recent colonoscopy. Blood count CBC and CMP normal. History of Present Illness #1. Essential Hypertension: Stage: Stage I Interval Neurological Complaints excellent. No shortness of breath, orthopnea or cardiovascular symptoms. No other symptoms related to end organ damage. Pressure has been under normal control. Currently salt restriction and Hydrochlorothiazide and Lisinopril. No other end organ symptoms or findings. Therapy reviewed regarding management of hypertension and includes Type II Hypercholesterolaemia. #2. taking medication and tolerating well: Currently No. fair control interval complaints of any muscle pain or arthralgia. No significant liver changes with medications. Last lipid panel: diet and Pravachol. Therapy reviewed regarding treatment of cholesterol management and include Type II. #3. no polyuria polyphagia or polydipsia Diabetes: Has had no. Has had 100-115 mg% hypoglycemic like responses. No new history of any numbness, tingling, weakness or visual problems. No nausea, anorexia or other constitutional symptoms. There has been no foot problems or non healing lesions. The last HAIC was infrequently. Average blood sugars Metformin and Sulfonylureas. Checking sugars : none Medication Types Include: none Secondary complications include Amaryl and Glucophage. Macro-vascular complications include good. Therapy reviewed regarding diabetic management and include ALONDRA inhibitors Compliance: statins Renal Protection: A1 Lipid management: has not seen eyed doctor in last year and instructed to make appointment with the blending tank helper or sounding device operator Urinary microalbumin: A1 . Ophthalmological: has seen eye doctor within the last year Active Medication ListCarbidopa/Levodopa 25-250 One HsHydrochlorothiazide 12.5 MG (CAPSULE - ORAL) One Daily For HtnPravachol 40 MG (TABLET - ORAL) One Hs For CholesterolLisinopril 20 MG TABLET One DailyGlucophage 1 GM (TABLET - ORAL) One BidAspirin 325 MG Two DailyAmaryl 2 MG (TABLET - ORAL) One Bid Vaccination and Tictuvkxtzul3069-18 Covid Booster Khwitu8148-83 Jnntbxnoc7722-18 Covid Pfizer Surgical Ocpjbqy7393-48 Appendectomy Preventative Vwujetj2812/04/2023 ALBUMIN 4.3 G/DL12/04/2023 MICRO ALBUMIN 33.5 MG/L H012/04/2023 HAIC 5.7 %05/28/2023 PSA 1.42 NG/ML N010/20/2021 COLONOSCOPY ( 5 YEARS ) 10/20/2026 Social 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 Family HistoryMother 78 from CA of breast, Parkinsonism, and some form of gastric problemFather 78 from metastatic CA of ColonNo brothers or sistersSeveral other relatives have from CA of Breast , duodenum and possible CA of colon Active Medication ListCarbidopa/Levodopa 25-250 One HsHydrochlorothiazide 12.5 MG (CAPSULE - ORAL) One Daily For HtnPravachol 40 MG (TABLET - ORAL) One Hs For CholesterolLisinopril 20 MG TABLET One DailyGlucophage 1 GM (TABLET - ORAL) One BidAspirin 325 MG Two DailyAmaryl 2 MG (TABLET - ORAL) One Bid Vaccination and Olhpdxjazdxq8011-35 Covid Booster Zxbsly0196-45 Chcvpivko6965-51 Covid RE2 Surgical Ijhgcon3778-29 Appendectomy Preventative Abgmcyf1512/04/2023 ALBUMIN 4.3 G/DL12/04/2023 MICRO ALBUMIN 33.5 MG/L H012/04/2023 HAIC 5.7 %05/28/2023 PSA 1.42 NG/ML N010/20/2021 COLONOSCOPY ( 5 YEARS ) 10/20/2026 Social 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 Family HistoryMother 78 from CA of breast, Parkinsonism, and some form of gastric problemFather 78 from metastatic CA of ColonNo brothers or sistersSeveral other relatives have from CA of Breast , duodenum and possible CA of colon TEST RESULT RANGE UNITSCBC/COMPLETE BLD COUNT W/DIFF Date: 12/04/2023WHITE BLOOD CELLS 9.8 4.2-10.8 X10'3/ULHEMOGLOBIN 15.1 13.2-17.0 G/DLHEMATOCRIT 45.2 39.3-50.0 %PLATELETS 231 150-400 X10'3/ULCOMPREHENSIVE METABOLIC PANEL Date: 12/04/2023SODIUM 142 137-145 MMOL/LPOTASSIUM 4.2 3.5-5.1 MMOL/LGLUCOSE 114 70-99 MG/DLBUN 19 8-19 MG/DLCREATININE 0.92 0.66-1.25 MG/DLGFR >60ALKALINE PHOSPHATASE 69 38-126 U/LALANINE AMINOTRANSFERASE 9 0-50 U/LASPARTATE AMINOTRANSFERASE 24 15-46 U/LBILIRUBIN, TOTAL 0.60 0.20-1.30 MG/DLHEMOGLOBIN A1C Date: 12/04/2023HA1C 5.7 4.0-6.0 %LIPID PANEL Date: 4CHOLESTEROL 115 140-199 MG/DLTRIGLYCERIDES 94 0-150 MG/DLHDL CHOLESTEROL 33 40- MG/DLLDL CHOLESTEROL, CALCULATED 63 0-130 MG/DL Kota Rodriguez MD [address] [facility], [facility] [address], [place], [address], [facility] 05/12/2024 12:29:34 024 text/ht ml Patient Name: Adebayo Ramos Of Service: July ( 08.04.2024 ): 1955 Age: 69 There has been approximately a 9 lb weight loss since 05/12/2024. This represents approximately a 3.4% change in weight. Weight change attributable to lifestyle changes. Vital Signs:Blood Pressure: Sitting Rt. Arm 118/64Pulse: Sitting 68 /min and RegularRespiratory Rate: 16Height 76 in or 1.9 mWeight 256 lb or 116.1 kgBMI 31.2Temperature: 97 F or 36.1 CPulse Oximetry: 98 % at rest on no oxygen Chief Complaint: Addressed in HPI Problems or conditions discussed in the HPI were the only ones reviewed during the encounter.Only social and family history addressed in the HPI were reviewed during this encounter. Attendant(s): NoneConstitutional and Systemic Symptoms:none Medication Reconciliation: from medication list. [id number]: CT scan abdomen and pelvis without contrast demonstrates no intra-abdominal abnormalities to account for any type of recurrent abdominal pain. Family history of colon cancer and has had a recent colonoscopy. Blood count CBC and CMP normal. History of Present Illness #1. Essential Hypertension: Stage: normal Interval Neurological Complaints no headaches, dizziness, weakness, visual changes, ataxia, aphasia and apraxia. No shortness of breath, orthopnea or cardiovascular symptoms. No other symptoms related to end organ damage. Pressure has been under excellent control. Currently normal. No other end organ symptoms or findings. Therapy reviewed regarding management of hypertension and includes salt restriction and Lisinopril. #2. Type II Hypercholesterolaemia: Currently taking medication and tolerating well. No interval complaints of any muscle pain or arthralgia. No significant liver changes with medications. Last lipid panel: fair control. Therapy reviewed regarding treatment of cholesterol management and include diet and Pravachol. #3. Type II Diabetes: Has had no polyuria polyphagia or polydipsia. Has had no hypoglycemic like responses. No new history of any numbness, tingling, weakness or visual problems. No nausea, anorexia or other constitutional symptoms. There has been no foot problems or non healing lesions. The last HAIC was DCCT HAIC: 5.7 Calculated MB mg%. CGM: No. Average blood sugars not taking blood sugars regularly and instructed on the importance of monitor these values. Checking sugars : infrequently. Medication Types Include: Metformin and Sulfonylureas Secondary complications include none. Macro-vascular complications include none. Therapy reviewed regarding diabetic management and include good Compliance: ALONDRA inhibitors Renal Protection: statins Lipid management: A1 Urinary microalbumin: has seen eye doctor within the last year . Ophthalmological: Below 6.2. Control: Below 6.2 Active Medication ListCarbidopa/Levodopa 25-250 One HsHydrochlorothiazide 12.5 MG (CAPSULE - ORAL) One Daily For HtnPravachol 40 MG (TABLET - ORAL) One Hs For CholesterolLisinopril 20 MG TABLET One DailyGlucophage 1 GM (TABLET - ORAL) One BidAmaryl 2 MG (TABLET - ORAL) One Bid Vaccination and Immunization(X) 2021- INFLUENZA( ) 2020- COVID PFIZER(X) 2022- COVID BOOSTER PFIZER Surgical Srmtjqi2283-54 Appendectomy Preventative Testing( ) 12/04/2023 Albumin 4.3 G/DL( ) 12/04/2023 Micro Albumin 33.5 MG/L H( ) 12/04/2023 HAIC 5.7 %( ) 05/28/2023 PSA 1.42 NG/ML N 05/28/2025( ) 10/20/2021 Colonoscopy ( 5 Years ) 10/20/2026 Social 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 Family HistoryMother 78 from CA of breast, Parkinsonism, and some form of gastric problemFather 78 from metastatic CA of ColonNo brothers or sistersSeveral other relatives have from CA of Breast , duodenum and possible CA of colon Active Medication ListCarbidopa/Levodopa 25-250 One HsHydrochlorothiazide 12.5 MG (CAPSULE - ORAL) One Daily For HtnPravachol 40 MG (TABLET - ORAL) One Hs For CholesterolLisinopril 20 MG TABLET One DailyGlucophage 1 GM (TABLET - ORAL) One BidAmaryl 2 MG (TABLET - ORAL) One Bid Vaccination and Immunization(X) 2021- INFLUENZA( ) 2020- COVID PFIZER(X) 2022- COVID BOOSTER PFIZER Surgical Xdttswm6116-02 Appendectomy Preventative Testing( ) 12/04/2023 Albumin 4.3 G/DL( ) 12/04/2023 Micro Albumin 33.5 MG/L H( ) 12/04/2023 HAIC 5.7 %( ) 05/28/2023 PSA 1.42 NG/ML N 05/28/2025( ) 10/20/2021 Colonoscopy ( 5 Years ) 10/20/2026 Social 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 This represents approximately a 6.3% change in weight. Weight change attributable to lifestyle changes. Vital Signs:Blood Pressure: Sitting Rt. Arm 120/74Pulse: Sitting 69 /min and RegularRespiratory Rate: 16Height 76 in or 1.9 mWeight 272 lb or 123.4 kgBMI 33.1Temperature: 97 F or 36.1 CPulse Oximetry: 95 % at rest on no oxygen Chief Complaint: Addressed in HPI Problems or conditions discussed in the HPI were the only ones reviewed during the encounter.Only social and family history addressed in the HPI were reviewed during this encounter. Attendant(s): None and SpouseConstitutional and Systemic Symptoms:none Medication Reconciliation: from medication list. [id number]: CT scan abdomen and pelvis without contrast demonstrates no intra-abdominal abnormalities to account for any type of recurrent abdominal pain. Family history of colon cancer and has had a recent colonoscopy. Blood count CBC and CMP normal. History of Present Illness #1. Contusion to the left great toe. No specific injury but sounds like he may have caught the nail and pulled it backwards. There is some ecchymotic changes noted the base of the nail. Might be some early redness that might suggest some early infection. Will cover with some antibiotics. Instructed patient to take a picture of the toe in the next 4872 hours and send it back to me if there is any change in condition. Also has noticed that if he gets any larger or any red or in color to let us know.: Active Medication ListCarbidopa/Levodopa 25-250 One HsHydrochlorothiazide 12.5 MG (CAPSULE - ORAL) One Daily For HtnPravachol 40 MG (TABLET - ORAL) One Hs For CholesterolLisinopril 20 MG TABLET One DailyGlucophage 1 GM (TABLET - ORAL) One BidAmaryl 2 MG (TABLET - ORAL) One Bid Kota Rodriguez MD [address] [facility], [facility] [address], [place], [address], [place] [facility] 09/22/2024 16:55:06
--- OUTSIDE RECORDS SUMMARY | 2024-11-04 00:55 | XMS_ITS | Referral Summary ---
Author Organization [facility] [email or web address] Address [address] [place] [address] Care Team Providers Care Cnc Programmer Name Role Phone Unavailable Primary Care Provider Unavailabl e Source Comments [facility] [email or web address],non-owned Affiliates and Associated Physician Practices is amultiple site organization consisting of ambulatory clinics and hospital sitesin [place], [place], [place] and [place]. This disclosure is being madepursuant to the Care Everywhere program and may not contain all information available regarding this patient. Last updated 18.[facility] Allergies No known active allergies Medications * [...] cervical int ervertebral disc without myelopathy 07/14/2013 Social History Tobacco Use Types Packs/Day Years [...] Comments Blood Pressure 128/74 12/06/2018 11:25 AM PEDIATRIC DENTAL HYGIENIST Pulse 74 12/06/2018 11:25 AM PEDIATRIC DENTAL HYGIENIST Temperature - - Respiratory Rate 18 12/06/2018 11:25 AM PEDIATRIC DENTAL HYGIENIST Oxygen Saturation 96% 12/06/2018 11:25 AM PEDIATRIC DENTAL HYGIENIST Inhaled Oxygen Concentration - - Weight 140.2 kg (309 lb) 12/06/2018 11:25 AM PEDIATRIC DENTAL HYGIENIST Height 193 cm (6' 4 ) 12/06/2018 11:25 AM PEDIATRIC DENTAL HYGIENIST Body Mass Index 37.61 12/06/2018 11:25 AM PEDIATRIC DENTAL HYGIENIST Plan of Treatment Not on file
--- OUTSIDE RECORDS SUMMARY | 2024-11-04 00:55 | XMS_ITS | CONTINUITY OF CARE DOCUMENT ---
Author Name zohreh bruner Address Unknown Organization [facility] Address [address] [place] [address] Phone [phone] Care Team Providers Care Cement Storage Worker Name Role Phone Trev Celaya DO Unavailable [phone] PAN GARCIA MD Unavailable PAN GARCIA MD Unavailable [phone] INSURANCE PROVIDERS Payer name Policy type / Coverage type [place] red constitution party ID [facility] MCARE COMPLETE PPO Commercial insurance comp any [id number]
--- OUTSIDE RECORDS SUMMARY | 2024-11-04 00:55 | XMS_ITS | Patient Health Summary ---
Author Organization [facility] Address [address] [place] [address] Care Team Providers Care Machine Assistant Name Role Phone Unavailable Primary Care Provider Unavailabl e Note from [facility],non-owned Affiliates and Associated Physician Practices is amultiple site organization consisting of ambulatory clinics and hospital sitesin [place], [place]. This disclosure is being madepursuant to the Care Everywhere program and may not contain all information available regarding this patient. Last updated 18.[facility] Allergies No known active allergies Medications * Be aware that medications may not be up to date on this document. Alwaysverify current medications with the patient. * aspirin 325 MG tablet Take 3 tablets by mouth once daily * hydrochlorothiazide (MICROZIDE) 12.5 MG capsule Take 1 Cap by mouth once daily. * carbidopa-levodopa (SINEMET) 10-100 MG tablet Take 1 tablet by mouth 3 times daily 1 tablet tid * pravastatin (PRAVACHOL) 40 MG tablet Take 1 Tab by mouth once daily. * metformin CR 24hr modified (GLUMETZA) 500 MG (MOD) tablet Take 500 mg by mouth daily with dinner. * lisinopril (PRINIVIL; ZESTRIL) 20 MG tablet(Started 01/18/2018) Take 20 mg by mouth once daily 1 refill left * indomethacin (INDOCIN) 50 MG capsule Take 50 mg by mouth once daily * glimepiride (AMARYL) 2 MG tablet(Started 11/08/2018) Take 2 mg by mouth 2 times daily 1 refill left * topiramate (TOPAMAX) 25 MG tablet(Started 12/06/2018) Take 2 tablets by mouth at bedtime 11 refills remaining Active Problems Problem Noted Date Diagnosed Date Numbness and tingling 10/18/2014 Headache 10/18/2014 Degeneration of cervical intervertebral disc 12/2012 Pain [...] Comments Blood Pressure 128/74 12/06/2018 11:25 AM DISTRICT RESOURCE OFFICER Pulse 74 12/06/2018 11:25 AM DISTRICT RESOURCE OFFICER Temperature - - Respiratory Rate 18 12/06/2018 11:25 AM DISTRICT RESOURCE OFFICER Oxygen Saturation 96% 12/06/2018 11:25 AM DISTRICT RESOURCE OFFICER Inhaled Oxygen Concentration - - Weight 140.2 kg (309 lb) 12/06/2018 11:25 AM DISTRICT RESOURCE OFFICER Height 193 cm (6' 4 ) 12/06/2018 11:25 AM DISTRICT RESOURCE OFFICER Body Mass Index 37.61 12/06/2018 11:25 AM DISTRICT RESOURCE OFFICER Procedures * NERVE CONDUCTION TEST(Performed 10/24/2014) Performed for Numbness and tingling, Headache * MRI CERVICAL SPINE WO CONTRAST(Performed 05/25/2012) Performed for Cervicalgia, Cervical spondylosis without myelopathy, Migraine, unspecified, without mention of intractable migraine without mention of status migrainosus * MRI CERVICAL SPINE WO CONTRAST(Performed 05/25/2012) Performed for Neck pain, Cervical spondylosis, Post concussive syndrome, Migraine Results * NERVE CONDUCTION TEST (10/24/2014) Saroj Lara MD NEUROLOGY ORDERABLES [facility] RESULT SCAN * MRI SPINE CERVICAL NON CONTRAST (05/25/2012 1:44 PM CDT) Only the most recent of2 resultswithin the time period is included. Anatomical Region Laterality Modality Pelvis Magnetic Resonan ce 05/25/2012 3:12 PM CDT Impressions 05/25/2012 3:49 PM CDT Disc herniations are present at C5-C6 and at C6-C7 but do not result in significant central canal stenosis. Neural foraminal narrowing is present from C3-C4 through C6-C7. Neural foraminal stenosis appears most pronounced at C5-C6 on the right. Narrative 05/25/2012 3:49 PM CDT MRI Cervical Spine Indication: Neck pain, cervical spondylosis. Technique: The following sequences were obtained: Sagittal T1 and T2, axial T2 volume, axial gradient-echo. Comparison: None. Findings: Alignment: There is loss of the normal cervical lordosis. This is a nonspecific finding which may be secondary to muscle spasm or patient positioning. No focal malalignment is appreciated. Spinal cord: Normal in morphology and in signal intensity. Marrow: Mild degenerative marrow changes are present adjacent to the C5-C6 disc. Intervertebral discs: Mild disc space narrowing is present at C5-C6 and C6-C7 with posterior disc bulges at each of these levels, larger at C5-C6. The following levels were directly imaged in the axial plane: C2-C3: Normal. C3-C4: No significant disc herniation or central canal stenosis is present. The right neural foramen is mildly narrowed by uncovertebral osteophytosis. C4-C5: Small central disc bulge does not result in significant stenosis. The right neural foramen is mildly narrowed and the left minimally narrowed secondary to uncovertebral osteophytosis. C5-C6: Disc bulge eccentric to the right effaces the ventral CSF space and contacts the cervical spinal cord but does not result in significant central canal stenosis. The left neural foramen is mildly narrowed and the right mild to moderately narrowed secondary to uncovertebral osteophytosis C6-C7: Disc bulge effaces the ventral CSF space without significant central canal stenosis. Neural foramina are mildly narrowed by uncovertebral osteophytosis C7-T1: Normal. T1-T2: Normal. Procedure Note Maria Del Carmen Abbott MD - 05/25/2012 MRI Cervical Spine Indication: Neck pain, cervical spondylosis. Technique: The following sequences were obtained: Sagittal T1 and T2, axial T2 volume, axial gradient-echo. Comparison: None. Findings: Alignment: There is loss of the normal cervical lordosis. This is a nonspecific finding which may be secondary to muscle spasm or patient positioning. No focal malalignment is appreciated. Spinal cord: Normal in morphology and in signal intensity. Marrow: Mild degenerative marrow changes are present adjacent to the C5-C6 disc. Intervertebral discs: Mild disc space narrowing is present at C5-C6 and C6-C7 with posterior disc bulges at each of these levels, larger at C5-C6. The following levels were directly imaged in the axial plane: C2-C3: Normal. C3-C4: No significant disc herniation or central canal stenosis is present. The right neural foramen is mildly narrowed by uncovertebral osteophytosis. C4-C5: Small central disc bulge does not result in significant stenosis. The right neural foramen is mildly narrowed and the left minimally narrowed secondary to uncovertebral osteophytosis. C5-C6: Disc bulge eccentric to the right effaces the ventral CSF space and contacts the cervical spinal cord but does not result in significant central canal stenosis. The left neural foramen is mildly narrowed and the right mild to moderately narrowed secondary to uncovertebral osteophytosis C6-C7: Disc bulge effaces the ventral CSF space without significant central canal stenosis. Neural foramina are mildly narrowed by uncovertebral osteophytosis C7-T1: Normal. T1-T2: Normal. IMPRESSION Disc herniations are present at C5-C6 and at C6-C7 but do not result in significant central canal stenosis. Neural foraminal narrowing is present from C3-C4 through C6-C7. Neural foraminal stenosis appears most pronounced at C5-C6 on the right. Saroj Lara MD MR ORDERABLES
--- OUTSIDE RECORDS SUMMARY | 2024-11-04 00:55 | XMS_ITS | Continuity of Care Document ---
Author Organization [facility] Address [id number] [place] [address] [place] [address] Phone Care Team Providers Care Crusher Operator Name Role Phone Andrea Obrien DO Unavailable Unavailable Advance Directives Directive Yes / No Effective Date File Name No Information Encounters Encounter Description Practice Location Reason(s) For Visit Diagnoses Date Provider Providers Copied on Encounter [facility], [id number] [place] [address] [address], [place], [place], [id number], [place] tel:[phone] [facility] No Information Camille Mcmullen. [address] [place], [address], [place]. tel: [phone] Family History Family Member Type Diagnosis Age At Onset No Information Payers Payer name Insurance type Covered constitution party ID Authoriza tion(s) No Information Social History Type Description Quantity Date Captured Comments Sex Male Smoking Status No Information Chief Complaint And Reason For Visit No Information Reason For Referral Reason For Referral No Information History Of Present Illness Encounter Date Complaint History Of Prese nt Illness No Information Functional Status Date Functional Assessmen t No Information Instructions Date Instruction Additional Infor mation No Information Assessments Type Assessment Date No Information Patient Care Teams Name Effective Dates (start - stop) Status Members No Information
== END 2024-11-02 13:08 | disposition home or self-care (01) ==
PROVIDERS: PCP Internal Medicine; Visit Provider Internal Medicine
DX: G56.01 Carpal tunnel syndrome, right upper limb (principal)
CPT/HCPCS: 95886; 95909